=== PATIENT | male | born 1965 | race Caucasian/White ===

== ENCOUNTER → 2025-03-01 | Outpatient (CLI) | payer OTHER, SELFPAY ==
[2025-03-01 16:10] LABS: AST(SGOT) 36 U/L (<=37); Alanine Aminotransfer ALT/SGPT 27 U/L (<=46); Albumin, Serum 4.4 g/dL (3.5-5.0); Alkaline Phosphatase 98 U/L (40-129); Anion Gap 12 (5-15); BUN 23 mg/dL (4-19); BUN/Creat Ratio 14.2 RATIO (10-20); Calcium,Total 9.0 mg/dL (7.6-11.0); Carbon Dioxide 19.0 mmol/L (21.0-32.0); Chloride 111 mmol/L (98-108); Cholesterol 133 mg/dL (<=200); Globulin 2.7 g/dL (2.2-4.2); Glucose 121 mg/dL (70-99); Low Density Lipoprotein Calc. 66 mg/dL; PSA,Total - Annual Screen 7.79 ng/mL (0.02-4.00); Potassium 3.9 mmol/L (3.3-5.1); Triglycerides 125 mg/dL; Very Low Density Lipoprotein 25 mg/dL (5-40); Vitamin B12 266 pg/mL (180-914); cholesterol:hdl ratio screen 3.15
== END | disposition home or self-care (01) ==
PROVIDERS: PCP Family Medicine; Referring Provider Family Medicine; Visit Provider Family Medicine
DX: E11.9 Type 2 diabetes mellitus without complications (principal); Z12.5 Encounter for screening for malignant neoplasm of prostate; N40.0 Benign prostatic hyperplasia without lower urinary tract symptoms
CPT/HCPCS: 36415; 80053; 80061; 82607; 84153; 84403; 84443; G0103

== ENCOUNTER → 2025-05-31 | Outpatient (CLI) | payer OTHER, SELFPAY ==
--- OUTSIDE RECORDS SUMMARY | 2025-05-31 07:27 | XMS RPT_ITS | CCD ---
Author Organization [facility] CliniSysc Care Team Providers Care Publishing Specialist Name Role Phone PARTH SOOD Unavailable UnavailPARTH To Unavailable UnavailPARTH To Unavailable Unavailable PARTH SOOD Unavailable Unavailable Furnguerrero Ian Unavailable Unavailable Rajiv Ayers Unavailable Unavailable Armen HUTTON, Rajiv Unavailable Unavailable Rajiv Ayers Unavailable Unavailable Reji Thomas Unavailable Unavailable Dexter Rios Unavailable Unavailable Unavailable Dexter Rios Unavailable Moomaw, Shaun I Unavailable Unavailable Jay II, Dr. Misael Feliz Attending Unavai lable [place], Mr. Dexter Escamilla Primary Care Unavail able Jay II, Dr. Misael Feliz Attending Unavai lable Jay II, Dr. Misael Feliz Referring Unavai [facility]able [facility], Mr. Dexter Escamilla Primary Care Unavail able Jay II, Dr. Misael Feliz Attending Unavai lable Jay II, Dr. Misael Feliz Referring Unavacedric lable [facility], Mr. Dexter Escamilla Primary Care Unavail able [place], Mr. Dexter Escamilla Primary Care Unavail able [place], Mr. Dexter Escamilla Attending Unavail able [place], Mr. Dexter Escamilla Referring Unavail able DEXTER RIOS M Primary Care Unavailable Dr. Alice Valentino Attending Unavailable [place], Mr. Dexter Escamilla Primary Care Unavail able Dexter Rios PA-C Primary Care Provider Dexter Rios PA-C Unavailable NADINE MARTINEZ Attending Unavailable DEXTER RIOS Primary Care Unavailable NADINE MARTINEZ Referring Unavailable DEXTRE RIOS Primary Care Unavailable KODY MARI Attending Unavailable No Family, Physician Primary Care Unavailable Andreina HUTTON, Dr. Vance Primary Care Physicia n Andreina HUTTON, Dr. Vance Attending Physician Dr. Rajiv Hdz MD Referring Provider Rajiv Hdz Referring Unavailable Rajiv Hdz Attending Unavailable Rajiv Hdz Primary Care Unavailable Allergies Allergy Classification Reported Allergen(s) Allergy Type Date of Onset Reaction(s) Facility NSAIDs (1 source) NSAIDs Drug Allergy [facility] [address] Work Phone: (2 sources) NSAIDs; Translations: [NSAIDS (NON-STEROIDAL ANTI-INFLAMMATOR Y DRUG)] Propensity to adverse reactions to drug (disorder) 5 [facility] Repository (9 sources) NSAIDs; Translations: [NSAIDs] Allergy to drug (finding) [facility] Work Phone: (1 source) Bee/Wasp/Ant venom Anaphylaxis [facility] (4 sources) apis mellifera venom Allergy to substance (finding) [facility] Work Phone: (1 source) ALLERGIES NOT ON FILE; Translations: [ALLERGIES NOT ON FILE] Propensity to adverse reactions (disorder) [facility] Medications Current Medications Medication Drug Class(es) Dates Sig (Normalized) Sig (Original) diclofenac potassium 50 mg oral tablet (1 source) Nonsteroidal Anti-inflammatory Drug Start: 06-26-2023 End: 06-25-2024 take 1 tablet by mouth three times daily diclofenac (Cataflam) 50 mg tablet Indications: Osteoarthritis of carpometacarpal (CMC) joint of both thumbs , Primary osteoarthritis of right knee Take 1 tablet (50 mg) by mouth 3 times a day. 270 tablet 3 06/26/2023 06/25/2024 Active empagliflozin 10 mg oral tablet (5 sources) Sodium-Glucose Cotransporter 2 Inhibitor Start: 02-11-2023 End: 02-11-2024 take 1 tablet by mouth once daily Jardiance 10 mg Indications: Type 2 diabetes mellitus without complication, without long-term current use of insulin ([facility]) TAKE 1 TABLET BY MOUTH EVERY DAY 90 tablet 3 02/11/2023 02/11/2024 Active Start: 08-06-2022 take 1 tablet by benoit once daily Jardiance 10 MG Oral Tablet TAKE 1 TABLET BY MOUTH ONCE DAILY Quantity: 30 Refills: 5 Ordered: 06-Aug-2022 Dexter Rios PA-C Start : 06-Aug-2022 Active [id number] 0.3 ml EPINEPHrine 1 mg/ml auto-injector (1 source) alpha-Adrenergic Agonist, beta-Adrenergic Agonist, Catecholamine Start: 01-08-2022 EPINEPHrine 0.3 mg injectable kit ; 0.3 milligram(s) intramuscularly as needed for severe allergic reaction Quantity: 1 Refills: 0 Ordered: 08-Jan-2022 Shaun Cerna I Start: 08-Jan-2022 Generic Substitution Allowed Comments: Obtain medical advice before taking any non-prescription drugs as some may affect the action of this medication. Comment on above: Obtain medical advic e before taking any non-prescription drugs as some may affect the action of this medication. FLUoxetine 10 mg oral capsule (11 sources) Serotonin Reuptake Inhibitor Start: 02-11-2023 End: 02-11-2024 take 1 capsule by mouth once daily FLUoxetine (PROzac) 10 mg capsule Indications: Anxiety and depression TAKE 1 CAPSULE BY MOUTH EVERY DAY 90 capsule 3 02/11/2023 02/11/2024 Active Start: 09-21-2019 take 1 capsule by mo [facility] once daily FLUoxetine HCl - 10 MG Oral Capsule TAKE 1 CAPSULE Daily Quantity: 30 Refills: 6 Ordered: 25-Apr-2022 Dexter Rios PA-C Start : 21-Sep-2019 Active FLUoxetine ; ora lly once a day Quantity: 0 Refills: 0 Ordered: 02-Nov-2019 Shima Khalil Generic Substitution Allowed 24 hr metFORMIN hydrochloride 1000 mg / SITagliptin 50 mg extended release oral tablet (11 sources) Biguanide, Dipeptidyl Peptidase 4 Inhibitor Start: 02-11-2023 End: 02-11-2024 take 1 tablet by mouth once daily sitaGLIPtin phos-metformin 50-1,000 mg tablet, ER multiphase 24 hr Indications: Type 2 diabetes mellitus without complication, without long-term current use of insulin ([facility]) TAKE 1 TABLET BY MOUTH EVERY DAY 90 tablet 3 02/11/2023 02/11/2024 Active Start: 07-18-2020 take 1 tablet by benoit th twice daily at mealtime Janumet XR 50-1000 MG Oral Tablet Extended Release 24 Hour Take one tablet twice daily with meals Quantity: 60 Refills: 6 Ordered: 08-Aug-2021 Dexter Rios PA-C Start : 18-Jul-2020 Active Start: 07-18-2020 take 2 tablets by mo uth once daily Janumet XR 50-1000 MG Oral Tablet Extended Release 24 Hour TAKE 2 TABLET Daily Quantity: 180 Refills: 3 Rajiv Ayers MD Start : 18-Jul-2020 Active Start: 09-21-2019 take 1 tablet by benoit th twice daily at mealtime Janumet 50-500 MG Oral Tablet TAKE 1 TABLET TWICE DAILY WITH MEALS. Quantity: 180 Refills: 3 Ian Noble MD Start : 21-Sep-2019 Active Janumet 50 mg-50 0 mg oral tablet ; orally once a day Quantity: 0 Refills: 0 Ordered: 02-Nov-2019 Shima Khalil Generic Substitution Allowed pantoprazole 20 mg delayed release oral tablet (1 source) Proton Pump Inhibitor Start: 06-26-2023 End: 06-25-2024 take 1 tablet by mouth once daily before mealtime pantoprazole (Protonix) 20 mg EC tablet Indications: Osteoarthritis of carpometacarpal (CMC) joint of both thumbs , Primary osteoarthritis of right knee Take 1 tablet (20 mg) by mouth once daily in the morning. Take before meals. Do not crush, chew, or split. 90 tablet 3 06/26/2023 06/25/2024 Active predniSONE 50 mg oral tablet (1 source) Start: 01-08-2022 End: 01-12-2022 take 1 tablet by mouth once daily at mealtime predniSONE 50 mg oral tablet ; 1 tab(s) orally once a day x 5 days Quantity: 5 Refills: 0 Ordered: 08-Jan-2022 Shaun Cerna I Start: 08-Jan-2022 End: 12-Jan-2022 Generic Substitution Allowed Comments: It is very important that you take or use this exactly as directed. Do not skip doses or discontinue unless directed by your doctor.Obtain medical advice before taking any non-prescription drugs as some may affect the action of this medication.Take with food or milk. Comment on above: It is very important that you take or use this exactly as directed. Do not skip doses or discontinue unless directed by your doctor.Obtain medical advice before taking any non-prescription drugs as some may affect the action of this medication.Take with food or milk. tadalafil 5 mg oral tablet (4 sources) Phosphodiesterase 5 Inhibitor Start: 08-21-2022 End: 08-21-2023 take 1 tablet by mouth once daily tadalafil (Cialis) 5 mg tablet TAKE 1 TABLET BY MOUTH DAILY. 90 tablet 3 08/21/2022 08/21/2023 Active Completed/Discontinued Medications Medication Drug Class(es) Dates Sig (Normalized) Sig (Original) azithromycin 250 mg oral tablet (4 sources) Macrolide Antimicrobial Start: 3 Azithromycin 250 MG Oral Tablet TAKE DIRECTED PER PACKAGE INSTRUCTIONS. Quantity: 6 Refills: 0 Ordered: 06-Aug-2022 Dexter Rios PA-C Start : 06-Aug-2022 Active brompheniramine maleate 0.4 mg/ml / dextromethorphan hydrobromide 2 mg/ml / pseudoephedrine hydrochloride 6 mg/ml oral solution (4 sources) alpha-Adrenergic Agonist, Uncompetitive M-bljnsa-K-[place]part[place] te Receptor Antagonist, Sigma-1 Agonist Start: 3 take 5-10 mL by mouth every four to six hours as needed for cough Eiptatbzm-Tkcqrcne-BZ 30-2-10 MG/5ML Oral Syrup take 5-10 mL po q4-6 hrs prn cough, cold, or allergy symptoms Quantity: 120 Refills: 1 Ordered: 06-Aug-2022 Dexter Rios PA-C Start : 06-Aug-2022 Active cephalexin 250 mg oral tablet (2 sources) Cephalosporin Antibacterial Start: 3 take 1 tablet by mouth twice daily Cephalexin 250 MG Oral Tablet Take 1 tablet twice daily Quantity: 6 Refills: 0 Ordered: 09-Sep-2022 Misael Jay II, MD Start : 09-Sep-2022 Active 1 ml dexamethasone phosphate 4 mg/ml injection (4 sources) Corticosteroid Start: 4 End: 4 dexAMETHasone (Decadron) injection 4 mg methylPREDNISolone 4 MG Oral Tablet Therapy Pack (4 sources) Start: 3 methylPREDNISolone 4 MG Oral Tablet Therapy Pack as directed on package Quantity: 1 Refills: 0 Ordered: 06-Aug-2022 Dexter Rios PA-C Start : 06-Aug-2022 Active rosuvastatin calcium 5 mg oral tablet (4 sources) HMG-CoA Reductase Inhibitor Start: 3 take 1 tablet by mouth once daily Rosuvastatin Calcium 5 MG Oral Tablet take 1 tablet by mouth once daily Quantity: 30 Refills: 3 Ordered: 06-Aug-2022 Dexter Rios PA-C Start : 06-Aug-2022 Active tamsulosin hydrochloride 0.4 mg oral capsule (8 sources) alpha-Adrenergic Sammi Start: 3 take 2 capsules by mouth at bedtime Tamsulosin HCl - 0.4 MG Oral Capsule TAKE 2 CAPSULE Bedtime Quantity: 30 Refills: 3 Ordered: 06-Aug-2022 Dexter Rios PA-C Start : 06-Aug-2022 Active Start: 08-08-2021 End: 08-06-2022 take 1 capsule by mouth once daily Tamsulosin HCl - 0.4 MG Oral Capsule TAKE 1 CAPSULE Daily Quantity: 90 Refills: 3 Ordered: 31-Jul-2022 Dexter Rios PA-C Start : 08-Aug-2021 End : 06-Aug-2022 Complete Problems Active Problems Problem Classification Problem Date Documented Da te Episodic/Chronic Acquired foot deformities (5 sources) Other hammer toe(s) (acquired), right foot; Translations: [Other hammer toe(s) (acquired), right foot] Onset: 03-20-2017 Chronic Allergic reactions (3 sources) Allergic reaction; Translations: [Allergy, unspecified, not elsewhere classified] 01-08-2022 Episodic Comment on above: ALLERGIC REACTION Blindness and vision defects (20 sources) Myopia; Translations: [Unspecified astigmatism, bilateral] Episodic Calculus of urinary tract (3 sources) History of calculus of kidney; Translations: [Personal history of urinary calculi] Episodic Cataract (9 sources) Pseudophakia of right eye; Translations: [Lens replaced by other means] 03-29-2020 Chronic Diabetes mellitus with complications (4 sources) 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; Translations: [Diabetes with renal manifestations, type II or unspecified type, not stated as uncontrolled] Chronic Diabetes mellitus without complication (11 sources) Type 2 diabetes mellitus without complication; Translations: [Diabetes mellitus without mention of complication, type II or unspecified type, not stated as uncontrolled] Onset: 03-12-2025 Chronic Genitourinary symptoms and ill-defined conditions (7 sources) Nocturia; Translations: [Nocturia] Episodic Hyperplasia of prostate (3 sources) Benign prostatic hypertrophy with outflow obstruction; Translations: [Benign localized hyperplasia of prostate with urinary obstruction and other lower urinary tract symptoms (LUTS)] Chronic Immunizations and screening for infectious disease (20 sources) Patient encounter status; Translations: [Other specified vaccination] Resolved: 08-08-2021 Episodic Comment on above: 02/22/2019; Mood disorders (14 sources) Depressive disorder; Translations: [Depressive disorder, not elsewhere classified] Chronic Osteoarthritis (16 sources) Osteoarthrosis of the carpometacarpal joint of the thumb; Translations: [Osteoarthrosis, unspecified whether generalized or localized, hand] Onset: 06-26-2023 06-23-2023 Chronic Other connective tissue disease (8 sources) Pain in thumb ; Translations: [Pain in limb] Episodic Other eye disorders (10 sources) Intermittent exotropia; Translations: [Intermittent heterotropia, unspecified] Episodic Other gastrointestinal disorders (9 sources) Blind loop syndrome; 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] Chronic Other non-traumatic joint disorders (1 source) Knee pain; Translations: [Knee pain] Episodic Other non-traumatic joint disorders (9 sources) Pain in unspecified knee; Translations: [Knee pain] Resolved: 08-08-2021 06-25-2023 Episodic Other non-traumatic joint disorders (2 sources) Effusion of right knee joint; Translations: [Effusion, right knee] Onset: 06-26-2023 06-26-2023 Episodic Other non-traumatic joint disorders (4 sources) Pain in right knee; Translations: [Pain in right knee] Onset: 06-26-2023 Episodic Other upper respiratory infections (4 sources) Upper respiratory infection; Translations: [Acute upper respiratory infections of unspecified site] Episodic Poisoning by nonmedicinal substances (2 sources) Allergic reaction to bee sting; Translations: [Toxic effect of venom] 01-08-2022 Episodic Screening and history of mental health and substance abuse codes (9 sources) H/O: psychiatric disorder; Translations: [Personal history of neurosis] Episodic Unclassified (1 source) Other specified postprocedural states; Translations: [Other specified postprocedural states] Onset: 03-20-2017 Unclassified (1 source) Unknown / UNK(Unknown) Onset: 03-20-2017 Unclassified (1 source) 6 MONTH FUV 08-08-2021 Comment on above: 6 MONTH FUV Past or Other Problems Problem Classification Problem Date Documented Date Episodic/Chronic Acquired foot deformities (1 source) Other deformities of toe(s) (acquired), right foot; Translations: [Other deformities of toe(s) (acquired), right foot] Onset: 03-20-2017 Episodic Other circulatory disease (7 sources) H/O: hypertension; Translations: [Personal history of other diseases of circulatory system] Resolved: 08-08-2021 Episodic Residual codes; unclassified (1 source) Other specified postprocedural states; Translations: [Other specified postprocedural states] Onset: 07-03-2022 Episodic Unclassified (1 source) Other deformities of toe(s) (acquired), right foot Onset: 03-20-2017 Unclassified (2 sources) Patient encounter status; Translations: [Encounter for immunization] NEGATED: Highlighted row has not occurred!Residual codes; unclassified (15 sources) Disease Episodic Results Test Name Value Interpretation Reference Range Facility Anion gap in Serum or Plasma Ordered By: Rajiv Hdz on 03-01-2025 Anion gap [Moles/Vol] 12 mmol/L - [facility] BUN/creatinine ratioOrdered By: Rajiv Hdz on 03-01-2025 Urea nitrogen/Creatinine [Mass ratio] 14.2 mg/mg - [facility] Bilirubin, totalOrdered By: Rajiv Hdz on 03-01-2025 Bilirubin [Mass/Vol] 0.37 mg/dL 0.00-1.30 [facility] Calculated very low density lipoprotein (VLDL) cholesterol measurementOrdered By: Rajiv Hdz on 03-01-2025 Calculated very low density lipoprotein (VLDL) cholesterol measurement 25 mg/dL 5-40 [facility] Carbon dioxide, total [Moles /volume] in Central venous bloodOrdered By: Rajiv Hdz on 03-01-2025 CO2 [Moles/Vol] 19.0 mmol/L Low 21.0-32.0 [facility] Chloride assayOrdered By: Kamryn Hdz on 03-01-2025 Chloride [Moles/Vol] 111 mmol/L High 98-108 [facility] Comprehensive Metabolic Prof ilon 03-01-2025 Albumin [Mass/Vol] 4.4 g/dL Normal 3.5-5.0 [facility] Comment on above: Order Comment: Order Date: 10/21/24 Order Info: [id number] - CMP Order Info: - LIPID Order Info: [id number] - TSH Order Info: [id number] - PSA Performed By: #### L [id number], L501.9910, L501.9520, L500.4100 #### [facility] [address] [place], [address] Albumin/Globulin [Mass ratio] 1.6 {ratio} Normal 0.9-2.4 [facility] Comment on above: Order Comment: Order Date: 10/21/24 Order Info: [id number] - CMP Order Info: - LIPID Order Info: [id number] - TSH Order Info: [id number] - PSA Performed By: #### L 500.4050, L501.9910, L501.9520, L500.4100 #### [facility] [address] [place], [address] ALK PHOS 98 U/L Normal 40-129 [facility] Comment on above: Order Comment: Order Date: 10/21/24 Order Info: [id number] - CMP Order Info: - LIPID Order Info: [id number] - TSH Order Info: [id number] - PSA Performed By: #### L 500.4050, L501.9910, L501.9520, L500.4100 #### [facility] [address] [place], [address] ALT [Catalytic activity/Vol] 27 U/L Normal <=46 [facility] Comment on above: Order Comment: Order Date: 10/21/24 Order Info: 785- - CMP Order Info: - LIPID Order Info: [id number] - TSH Order Info: [id number] - PSA Performed By: #### L 500.4050, L501.9910, L501.9520, L500.4100 #### [facility] [address] [place], [address] AST [Catalytic activity/Vol] 36 U/L Normal <=37 [facility] Comment on above: Order Comment: Order Date: 10/21/24 Order Info: [id number] - CMP Order Info: - LIPID Order Info: [id number] - TSH Order Info: [id number] - PSA Performed By: #### L 500.4050, L501.9910, L501.9520, L500.4100 #### [facility] [address] [place], [address] Bilirubin [Mass/Vol] 0.37 mg/dL Normal 0.00-1.30 [facility] Comment on above: Order Comment: Order Date: 10/21/24 Order Info: [id number] - CMP Order Info: - LIPID Order Info: [id number] - TSH Order Info: [id number] - PSA Performed By: #### L 500.4050, [id number], L501.9520, L500.4100 #### [facility] [address] [place], [address] BUN/CRE 14.2 RATIO Normal 10-20 [facility] Comment on above: Order Comment: Order Date: 10/21/24 Order Info: [id number] - CMP Order Info: - LIPID Order Info: [id number] - TSH Order Info: [id number] - PSA Performed By: #### L 500.4050, L501.9910, L501.9520, L500.4100 #### [facility] [address] [place], [address] Calcium [Mass/Vol] 9.0 mg/dL Normal 7.6-11.0 [facility] Comment on above: Order Comment: Order Date: 10/21/24 Order Info: 86-1 - CMP Order Info: [id number] - LIPID Order Info: [id number] - TSH Order Info: [id number] - PSA Performed By: #### L 500.4050, L501.9910, L501.9520, L500.4100 #### [facility] [address] [place], [address] Chloride [Moles/Vol] 111 mmol/L High 98-108 [facility] Comment on above: Order Comment: Order Date: 10/21/24 Order Info: [id number]- - CMP Order Info: - LIPID Order Info: [id number] - TSH Order Info: 1 - PSA Performed By: #### L 500.4050, L501.9910, L501.9520, L500.4100 #### [facility] [address] [place], [address] CO2 [Moles/Vol] 19.0 mmol/L Low 21.0-32.0 [facility] Comment on above: Order Comment: Order Date: 10/21/24 Order Info: [id number] - CMP Order Info: - LIPID Order Info: [id number] - TSH Order Info: [id number] - PSA Performed By: #### L 500.4050, L501.9910, L501.9520, L500.4100 #### [facility] [address] [place], [address] Creatinine [Mass/Vol] 1.64 mg/dL High 0.70-1.20 [facility] Comment on above: Order Comment: Order Date: 10/21/24 Order Info: [id number] - CMP Order Info: [id number] - LIPID Order Info: [id number] - TSH Order Info: [id number] - PSA Performed By: #### L 500.4050, L501.9910, L501.9520, L500.4100 #### [facility] [address] [place], [address] GAP 12 Normal 5-15 [facility] Comment on above: Order Comment: Order Date: 10/21/24 Order Info: 785- - CMP Order Info: - LIPID Order Info: [id number] - TSH Order Info: [id number] - PSA Performed By: #### L 500.4050, L501.9910, L501.9520, L500.4100 #### [facility] [address] [place], [place], [id number] GFR/1.73 sq M.predicted among non-blacks MDRD (S/P/Bld) [Vol rate/Area] 48 mL/min/{1.73_m2} Low >60 [facility] Comment on above: Order Comment: Order Date: 10/21/24 Order Info: [id number] - CMP Order Info: - LIPID Order Info: [id number] - TSH Order Info: [id number] - PSA Result Comment: mL/m in/1.73m2 CKD-EPI Creatinine Equation (2020) Performed By: #### L 500.4050, L501.9910, L501.9520, L500.4100 #### [facility] [address] [place], [address] Globulin (S) [Mass/Vol] 2.7 g/dL Normal 2.2-4.2 [facility] Comment on above: Order Comment: Order Date: 10/21/24 Order Info: [id number] - CMP Order Info: - LIPID Order Info: [id number] - TSH Order Info: [id number] - PSA Performed By: #### L 500.4050, L501.9910, L501.9520, L500.4100 #### [facility] [address] [place], [address] Glucose [Mass/Vol] 121 mg/dL High 70-99 [facility] Comment on above: Order Comment: Order Date: 10/21/24 Order Info: 785- - CMP Order Info: [id number] - LIPID Order Info: [id number] - TSH Order Info: [id number] - PSA Performed By: #### L 500.4050, L501.9910, L501.9520, L500.4100 #### [facility] [address] [place], [address] Potassium [Moles/Vol] 3.9 mmol/L Normal 3.3-5.1 [facility] Comment on above: Order Comment: Order Date: 10/21/24 Order Info: [id number] - CMP Order Info: - LIPID Order Info: [id number] - TSH Order Info: [id number] - PSA Performed By: #### L 500.4050, L501.9910, L501.9520, L500.4100 #### [facility] [address] [place], [address] Sodium [Moles/Vol] 142 mmol/L Normal 133-145 [facility] Comment on above: Order Comment: Order Date: 10/21/24 Order Info: 07 - CMP Order Info: - LIPID Order Info: [id number] - TSH Order Info: [id number] - PSA Performed By: #### L 500.4050, L501.9910, L501.9520, L500.4100 #### [facility] [address] [place], [address] T PROT 7.1 g/dL Normal 5.9-8.4 [facility] Comment on above: Order Comment: Order Date: 10/21/24 Order Info: [id number] - CMP Order Info: [id number] - LIPID Order Info: [id number] - TSH Order Info: [id number] - PSA Performed By: #### L 500.4050, L501.9910, L501.9520, L500.4100 #### [facility] [address] [place], [address] Urea nitrogen [Mass/Vol] 23 mg/dL High 4-19 [facility] Comment on above: Order Comment: Order Date: 10/21/24 Order Info: [id number] - CMP Order Info: [id number] - LIPID Order Info: [id number] - TSH Order Info: 1 - PSA Performed By: #### L 500.4050, L501.9910, L501.9520, L500.4100 #### [facility] [address] [place], [address] Glomerular filtration rate ( GFR) estimation/1.73 sq m using serum, plasma, or whole bOrdered By: Rajiv Hdz on 03-01-2025 GFR/1.73 sq M.predicted among non-blacks MDRD (S/P/Bld) [Vol rate/Area] 48 mL/min/{1.73_m2} Low >60 [facility] Comment on above: mL/min/1.73m2 CKD-EP I Creatinine Equation (2020) L509.3001on 03-01-2025 Testosterone [Mass/Vol] 239.00 ng/dL Low 300-890 [facility] Comment on above: Order Comment: Order Date: 10/21/24 Order Info: [id number] - CMP Order Info: 21557-1 - LIPID Order Info: 3015-08 - TSH Order Info: 1 - PSA Performed By: #### L 503.0106, L509.3001 #### [facility] [address] [place], [address] LDL calc ser/plasOrdered By: Rajiv Hdz on 03-01-2025 Cholesterol in LDL [Mass/Vol] 66 mg/dL [facility] Comment on above: Fmtejggrdh=567-081 m g/dL & Higher Mtbk=374 mg/dL or greaterFriedwald Equation for LDL-C Laboratory - Chemistry and C hemistry - challengeOrdered By: Rajiv Hdz on 03-01-2025 AST [Catalytic activity/Vol] 36 U/L <38 [facility] Testosterone [Mass/Vol] 239.00 ng/dL Low 300-890 [facility] Lipid Profileon 03-01-2025 CHOL:HDL 3.15 Normal [facility] Comment on above: Order Comment: Order Date: 10/21/24 Order Info: 0786-1 - CMP Order Info: [id number] - LIPID Order Info: [id number] - TSH Order Info: 2856-06 - PSA Performed By: #### L 500.4050, L501.9910, L501.9520, L500.4100 #### [facility] [address] [place], [place], [id number] Cholesterol [Mass/Vol] 133 mg/dL Normal <=200 [facility] Comment on above: Order Comment: Order Date: 10/21/24 Order Info: [id number] - CMP Order Info: - LIPID Order Info: [id number] - TSH Order Info: [id number] - PSA Result Comment: Chol esterol level, Desirable <200 mg/dL Borderline high cholesterol 200-239 mg/dL High cholesterol >=240 mg/dL Recommendations of the NCEP Adult Treatment Panel for the following risk-cutoff thresholds for the [place] population. Performed By: #### L 500.4050, L501.9910, L501.9520, L500.4100 #### [facility] [address] [place], [place], [address] Cholesterol in HDL [Mass/Vol] 42 mg/dL Normal [facility] Comment on above: Order Comment: Order Date: 10/21/24 Order Info: 0786- - CMP Order Info: [id number] - LIPID Order Info: 3015-08 - TSH Order Info: 2856-06 - PSA Result Comment: Amna onal Cholesterol Education Program (NCEP) guidelines: <40 mg/dL: Low HDL-cholesterol (major risk factor for CHD) >= 60 mg/dL: High HDL-cholesterol (negative risk factor for CHD) HDL-cholesterol is affected by a number of factors, e.g. smoking, exercise, hormones, sex and age. Performed By: #### L 500.4050, L501.9910, L501.9520, L500.4100 #### [facility] [address] [place], [address] Cholesterol in LDL [Mass/Vol] 66 mg/dL Normal [facility] Comment on above: Order Comment: Order Date: 10/21/24 Order Info: [id number] - CMP Order Info: [id number] - LIPID Order Info: 3 - TSH Order Info: [id number] - PSA Result Comment: Bord fjnahn=349-992 mg/dL Higher Cesg=927 mg/dL or greater Friedwald Equation for LDL-C Performed By: #### L 500.4050, L501.9910, L501.9520, L500.4100 #### [facility] [address] [place], [address] Cholesterol in VLDL [Mass/Vol] 25 mg/dL Normal 5-40 [facility] Comment on above: Order Comment: Order Date: 10/21/24 Order Info: 785- - CMP Order Info: [id number] - LIPID Order Info: 3 - TSH Order Info: 2856-06 - PSA Performed By: #### L 500.4050, L501.9910, L501.9520, L500.4100 #### [facility] [address] [place], [address] Triglyceride [Mass/Vol] 125 mg/dL Normal [facility] Comment on above: Order Comment: Order Date: 10/21/24 Order Info: 0786-1 - CMP Order Info: [id number] - LIPID Order Info: 3 - TSH Order Info: [id number] - PSA Result Comment: The drugs N-Acetylcysteine and Metamizole may falsely depress this assay. Normal range: <150 mg/dL Borderline High: 150-199 mg/dL High: 200-499 mg/dL Very High: >500 mg/dL Performed By: #### L 500.4050, L501.9910, L501.9520, L500.4100 #### [facility] [address] [place], [address] PSA,Total - Annual Screenon 03-01-2025 PSA,TOT SCREEN 7.79 ng/mL High 0.02-4.00 [facility] Comment on above: Order Comment: Order Date: 10/21/24 Order Info: [id number] - CMP Order Info: [id number] - LIPID Order Info: [id number] - TSH Order Info: 2857-1 - PSA Result Comment: This test was performed using the [employer] tPSA method. Measured values of a patient??sample can vary depending on the testing procedure used. PSA values determined on patient samples by different testing procedures cannot be used interchangeably. If there is a change in PSA assays while monitoring therapy, sequential testing should be performed to confirm baseline values. Performed By: #### L 500.4050, L501.9910, L501.9520, L500.4100 #### [facility] [address] [place], [address] Potassium measurement (mass/ volume)Ordered By: Rajiv Hdz on 03-01-2025 Potassium (Unsp spec) [Mass/Vol] 3.9 mmol/L 3.3-5.1 [facility] Screening total cholesterol/ high density lipoprotein (HDL) cholesterol ratioOrdered By: Rajiv Hdz on 03-01-2025 Cholesterol.total/Cho lesterol in HDL [Mass ratio] 3.15 {ratio} [facility] Serum creatinine measurement (mass/volume)Ordered By: Rajiv Hdz on 03-01-2025 Creatinine [Mass/Vol] 1.64 mg/dL High 0.70-1.20 [facility] Serum globulin measurementOr dered By: Rajiv Hdz on 03-01-2025 Globulin (S) [Mass/Vol] 2.7 g/dL 2.2-4.2 [facility] Serum glucose measurement (m ass/volume)Ordered By: Rajiv Hdz on 03-01-2025 Glucose [Mass/Vol] 121 mg/dL High 70-99 [facility] Serum or plasma alanine sosa otransferase (ALT) measurementOrdered By: Rajiv Hdz on 03-01-2025 ALT [Catalytic activity/Vol] 27 U/L <47 [facility] Serum or plasma albumin javi urement (mass/volume)Ordered By: Rajiv Hdz on 03-01-2025 Albumin [Mass/Vol] 4.4 g/dL 3.5-5.0 [facility] Serum or plasma albumin/glob ulin mass ratioOrdered By: Rajiv Hdz on 03-01-2025 Albumin/Globulin [Mass ratio] 1.6 {ratio} 0.9-2.4 [facility] Serum or plasma alkaline cam sphatase measurementOrdered By: Rajiv Hdz on 03-01-2025 ALP [Catalytic activity/Vol] 98 U/L 40-129 [facility] Serum or plasma calcium javi urement (mass/volume)Ordered By: Rajiv Hdz on 03-01-2025 Calcium [Mass/Vol] 9.0 mg/dL 7.6-11.0 [facility] Serum or plasma cholesterol in HDL measurement (mass/volume)Ordered By: Rajiv Hdz on 03-01-2025 Cholesterol in HDL [Mass/Vol] 42 mg/dL >40 [facility] Comment on above: National Cholesterol Education Program (NCEP) guidelines:<40 mg/dL: Low HDL-cholesterol (major risk factor for CHD)>= 60 mg/dL: High HDL-cholesterol (negative risk factor for CHD)HDL-cholesterol is affected by a number of factors, e.g. smoking, exercise, hormones, sex and age. Serum or plasma cholesterol measurement (mass/volume)Ordered By: Rajiv Hdz on 03-01-2025 Cholesterol [Mass/Vol] 133 mg/dL <201 [facility] Comment on above: Cholesterol level, D esirable <200 mg/dLBorderline high cholesterol 200-239 mg/dLHigh cholesterol >=240 mg/dLRecommendations of the NCEP Adult Treatment Panel for the following risk-cutoff thresholds for the [place] population. Serum or plasma urea nitroge n measurement (mass/volume)Ordered By: Rajiv Hdz on 03-01-2025 Urea nitrogen [Mass/Vol] 23 mg/dL High 4-19 [facility] Sodium levelOrdered By: Elliot Hdz on 03-01-2025 Sodium [Moles/Vol] 142 mmol/L 133-145 [facility] TSH DL <= 0.005 mIU/L QnOrde red By: Rajiv Hdz on 03-01-2025 TSH Qn 5.690 uIU/mL High 0.300-4.200 [facility] Thyroid Stim Hormone (TSH)on 03-01-2025 TSH 5.690 uIU/mL High 0.300-4.200 [facility] Comment on above: Order Comment: Order Date: 10/21/24 Order Info: 0786 - CMP Order Info: [id number] - LIPID Order Info: [id number] - TSH Order Info: 2856-06 - PSA Performed By: #### L 500.4050, L501.9910, L501.9520, L500.4100 #### [facility] [address] [place], [place], [id number] Total proteinOrdered By: Ruben Hdz on 03-01-2025 Protein [Mass/Vol] 7.1 g/dL 5.9-8.4 [facility] Triglycerides measurementOrd ered By: Rajiv Hdz on 03-01-2025 Triglyceride [Mass/Vol] 125 mg/dL <199 [facility] Comment on above: The drugs N-Acetylcy steine and Metamizole may falsely depress this assay. Normal range: <150 mg/dLBorderline High: 150-199 mg/dLHigh: 200-499 mg/dLVery High: >500 mg/dL Vitamin B12on 03-01-2025 Cobalamin (Vitamin B12) [Mass/Vol] 266 pg/mL Normal 180-914 [facility] Comment on above: Order Comment: Order Date: 10/21/24 Order Info: 0786 - CMP Order Info: [id number] - LIPID Order Info: [id number] - TSH Order Info: [id number] - PSA Performed By: #### L 503.0106, L509.3001 #### [facility] [address] [place], [place], [id number] Vitamin B12 ser/plasOrdered By: Rajiv Hdz on 03-01-2025 Cobalamin (Vitamin B12) [Mass/Vol] 266 pg/mL 180-914 [facility] Hand / UE Inj/Asp: bilateral thumb CMCon 06-26-2023 Nadine Martinez, [employer] 06/26/2023 1:13 PM Hand / UE Inj/Asp: bilateral thumb CMC for osteoarthritis on 06/26/2023 1:09 PM Indications: diagnostic, pain, joint swelling and therapeutic Details: 25 G needle, dorsal approach Medications (Right): 4 mg dexAMETHasone 4 mg/mL Medications (Left): 4 mg dexAMETHasone 4 mg/mL Outcome: tolerated well, no immediate complications We discussed risk and benefits of cortisone injection, patient wishes to proceed via verbal consent. Skin was prepped with Betadine, Vapocoolant spray and alcohol. Direct visualization using high-frequency linear probe of ultrasound was utilized to administer the injection of 4 mg Dexamethasone and 0.5 cc 1% lidocaine. Patient tolerated injection well lidocaine suppression. Educated to monitor qd blood sugars x 2 weeks. Drink plenty of water and unsweetened fluids, avoid added sugars and refined carbohydrates. Call your PCP for any concerning symptoms or elevated readings. Immediately prior to procedure a time out was called to verify the correct patient, procedure, equipment, instructional support services director and site/side marked as required. Patient was prepped and draped in the usual sterile fashion. [facility] Work Phone: [facility] Work Phone: XR HAND 3+ VIEWS BILATERALon 06-26-2023 XR HAND 3+ VIEWS BILATERAL Interpreted By: Marianna Nixon, STUDY: XR HAND 3+ VIEWS BILATERAL; 06/26/2023 8:24 am INDICATION: Signs/Symptoms:pain, CMC OA, weakness. COMPARISON: 07/11/2020 ACCESSION NUMBER(S): [id number] ORDERING CLINICIAN: NADINE MARTINEZ TECHNIQUE: PA, lateral and oblique images of the hands were obtained bilaterally. FINDINGS: There is moderate degenerative change of the 1st metacarpal-carpal joint. The bones of the right hand are otherwise unremarkable. There are mild degenerative changes of the left 1st metacarpal-carpal joint. Bones and joints of the left hand are otherwise unremarkable COMPARISON OF FINDINGS: IMPRESSION: Moderate osteoarthritic changes of the 1st metacarpal-carpal joint of the right hand. Mild osteoarthritic changes of the 1st metacarpal-carpal joint of the left hand. MACRO: none Signed by: Marianna Nixon 06/27/2023 10:36 AM Dictation workstation: [id number] [facility] XR KNEE RIGHT 3 VIEWSon 06-16 XR KNEE RIGHT 3 VIEWS Interpreted By: Marianna Ferguson, STUDY: XR KNEE RIGHT 3 VIEWS; 06/26/2023 8:23 am INDICATION: Signs/Symptoms:pain, swelling, limited ROM. COMPARISON: 10/12/2018 ACCESSION NUMBER(S): [id number] ORDERING CLINICIAN: NADINE MARTINEZ TECHNIQUE: AP, lateral and tunnel images of right knee were obtained. FINDINGS: There is moderate spurring of patella. There is spurring of the femur and tibia. There appears to be narrowing of the patellofemoral joint compartment. There is no fracture, bony destruction or joint effusion. COMPARISON OF FINDINGS: There appears to have been mild progression of disease since prior exam. IMPRESSION: Mild osteoarthritis of the right knee. MACRO: none Signed by: Marianna iNxon 06/27/2023 8:52 AM Dictation workstation: [id number] [facility] Comment on above: Order Comment: XR kn ee right 3 views weightbearing TOBACCO SCREEN MEDICAL PL AN ONLYon 03-13-2023 TOBACCO SCREEN, URINE Negative Normal [facility] Comment on above: Result Comment: Coti nine, a metabolite of nicotine, is measured to screen for nicotine exposure. The cut-off is set at 300ng/mL to detect active exposure (smoking). This test was developed and its performance characteristics were determined by the [facility]. Performed By: #### T OBSC #### [facility] [address] [place] [address] Lab Specimen Source Urine Normal [facility] Comment on above: Performed By: #### T OBSC #### [facility] [address] [place] [address] Office Visit (Urology)on Follow-up visit Diagnoses/Problems Assessed Benign prostatic hyperplasia with urinary obstruction and other lower urinary tract symptoms (600.21) (N40.1,N13.8) Nocturia (788.43) (R35.1) Never chewed tobacco (V49.89) (Z78.9) Orders Benign prostatic hyperplasia with urinary obstruction and other lower urinary tract symptoms Start: Cephalexin 250 MG Oral Tablet (Cephalexin Monohydrate); Take 1 tablet twice daily Rx By: Misael Jay II; Dispense: 3 Days ; #:6 Tablet; Refill: 0;For: Benign prostatic hyperplasia with urinary obstruction and other lower urinary tract symptoms; CRISTELA = N; Verified Transmission to [facility] Follow-up visit in 5 Months Outpatient Follow-up psa Status: Hold For - Scheduling Requested for: 09Sep2022 Ordered Stat;For: Benign prostatic hyperplasia with urinary obstruction and other lower urinary tract symptoms; Ordered By: Misael Jay II Performed: Due: 08Dec2022 Nocturia Prostate Specific Antigen; Status:Active; Requested for:09Sep2022; Perform:Lab Services - Lab To Draw (Blood Test); Due:08Dec2022;Ordered; For:Nocturia; Ordered By:Misael Jay II; SocHx: Never chewed tobacco Tobacco Use Screening; Status:Complete; Done: 09Sep2022 Perform:Not Applicable;Ordered; For:SocHx: Never chewed tobacco; Ordered By:Jenise Putnam; Chief Complaint Cysto,Prostate US-BPH with Urinary Obstruction and LUTS Active Problems Problems Anisometropia (367.31) (H52.31) Astigmatism of both eyes (367.20) (H52.203) Astigmatism of left eye (367.20) (H52.202) Benign prostatic hyperplasia with urinary obstruction and other lower urinary tract symptoms (600.21) (N40.1,N13.8) Bilateral thumb pain (729.5) (M79.644,M79.645) Blind loop syndrome, not elsewhere classified (579.2) (K90.2) 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,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,N18.2) Depression (311) (F32.A) Exotropia, intermittent (378.20) (H50.30) History of kidney stones (V13.01) (Z87.442) 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) Mood disorder (296.90) (F39) Myopia (367.1) (H52.10) Myopia with presbyopia of both eyes (367.1,367.4) (H52.13,H52.4) Myopia, left eye (367.1) (H52.12) Nocturia (788.43) (R35.1) Osteoarthritis of carpometacarpal (CMC) joints of both thumbs, unspecified osteoarthritis type (715.94) (M18.0) Pseudophakia of right eye (V43.1) (Z96.1) Type 2 diabetes mellitus without complication, unspecified whether ic designer custom insulin use (250.00) (E11.9) URI (upper respiratory infection) (465.9) (J06.9) Past Medical History Problems Astigmatism of both eyes (367.20) (H52.203) History of Encounter for immunization (V03.89) (Z23) Resolved Date: 08 Aug 2021 Exotropia, intermittent (378.20) (H50.30) History of hypertension (V12.59) (Z86.79) Resolved Date: 08 Aug 2021 History of OCD (obsessive compulsive disorder) (V11.2) (Z86.59) History of Knee pain (719.46) (M25.569) Resolved Date: 08 Aug 2021 History of Screening for prostate cancer (V76.44) (Z12.5) Resolved Date: 08 Aug 2021 History of Screening PSA (prostate specific antigen) (V76.44) (Z12.5) 02/22/2019 Type 2 diabetes mellitus without complication, unspecified whether long-term insulin use (250.00) (E11.9) Surgical History Problems History of Back surgery History of Cataract surgery APRIL 2020 History of Colonoscopy 03/08/19 History of Foot surgery History of Gastric bypass surgery 2009 History of Hammer toe surgery History of Myringotomy History of Rotator cuff repair RIGHT SHOULDER 2011 History of Strabismus surgery Family History Mother Family history of cerebrovascular accident (CVA) (V17.1) (Z82.3) Family history of myocardial infarction (V17.3) (Z82.49) Family history of type 2 diabetes mellitus (V18.0) (Z83.3) Father Family history of Cancer of unknown origin Family history of cerebrovascular accident (CVA) (V17.1) (Z82.3) Family history of glaucoma (V19.11) (Z83.511) Social History Problems Denies alcohol consumption (V49.89) (Z78.9) Never chewed tobacco (V49.89) (Z78.9) No alcohol use No illicit drug use Non-smoker (V49.89) (Z78.9) Patient consumes caffeinated coffee (V49.89) (Z78.9) Patient has living will (V49.89) (Z78.9) Allergies Medication NSAIDs Recorded By: Krysten Adame; 05/25/2019 1:11:38 PM Additional reactions - STOMACH PAIN NonMedication Bee sting Recorded By: Dionne Ontiveros; 05/20/2022 1:57:43 PM Current Meds Medication NameInstruction Azithromycin 250 MG Oral TabletTAKE DIRECTED PER PACKAGE INSTRUCTIONS. FLUoxetine HCl - 10 MG Oral CapsuleTAKE 1 CAPSULE Daily Janumet XR 50-1000 MG Oral Tablet Extended Release 24 HourTake one tablet twice daily with meals Jardiance 10 MG Oral TabletTAKE 1 TABLET BY MOUTH ONCE DAILY methylPREDNISolone 4 MG Oral Tablet Therapy Packas directed on package Vyboerups-Vdazgrjf-VP 30-2-10 MG/5ML Oral Syruptake 5-10 mL po q4-6 hrs prn cough, cold, or allergy symptoms Rosuvastatin Calcium 5 MG Oral Tablettak (more content not included)... Normal [employer] Tobacco Screening.on 023 Fall risk assessment a) No falls within the last year JS[facility]gvzxvu[facility] [employer] Phone: Tobacco use status CPHS b) No YW-Okojkte[facility] [employer] Phone: Tobacco Screening. Yes MP-Uro logy-[facility] [employer] Phone: C Reactive Protein, Serumon 09-06-2022 CRP [Mass/Vol] 0.29 mg/dL [facility] [employer] Phone: Comment on above: REF VALUE< 1.00 C-REACTIVE PROTEINon 023 C-REACTIVE PROTEIN 0.29 mg/dL Normal [facility] Comment on above: Result Comment: REF VALUE < 1.00 Performed By: #### C RP #### [address] [address] Cult, Misc + smearon 023 Bacteria identified Cx Nom (Unsp spec) QD-Cvcsnaa[facility] Work Phone: MISCELLANEOUS CULT./SM.BACT. on 09-06-2022 MISCELLANEOUS CULT./SM.BACT. PATIENT: LYNDA MARTINEZ LOCATION: [facility] BILL#: [id number] : 65 AGE: SEX: M ORDERED BY: MLIE BERNSTEIN SOURCE: WOUND/ABSCESS COLLECTED: 09/06/22 15:00 ANTIBIOTICS AT LISS.: RECEIVED : 09/07/22 01:46 SITE: RIGHT 3RD TOW WOUND R E S U L T S GRAM STAIN FINAL 09/07/22 09:16 NO GRANULOCYTES OR ORGANISMS SEEN. MISCELLANEOUS CULT./SM.BACT. FINAL 09/09/22 09:01 1+ MIXED SKIN LONNY Normal [facility] Comment on above: Performed By: #### M [facility] #### [facility] [address] [address] SEDIMENTATION RATE, ERYTHROC YTEon 09-06-2022 SEDIMENTATION RATE, ERYTHROCYTE 6 mm/h Normal 0 - 20 [facility] Comment on above: Performed By: #### E SRWS #### [address] [address] Sedimentation Rate, Erythroc yteon 09-06-2022 ESR (Bld) [Velocity] 6 mm/h 0 - 20 MP-U rology[facility] Work Phone: IO Ultrasound, measurement p ost-void resid urine and/or bl cap; no imagon 08-21-2022 IO Ultrasound, measurement post-void resid urine and/or bl cap; no imag 15 ml/min QQ-Zhzsoqw[facility] [employer] Work Phone: Office Visit (Urology)on Follow-up visit Diagnoses/Problems Assessed Nocturia (788.43) (R35.1) Benign prostatic hyperplasia with urinary obstruction and other lower urinary tract symptoms (600.21) (N40.1,N13.8) History of kidney stones (V13.01) (Z87.442) Non-smoker (V49.89) (Z78.9) Orders Benign prostatic hyperplasia with urinary obstruction and other lower urinary tract symptoms IO Ultrasound, measurement post-void resid urine and/or bl cap; no imag; Status:Complete - Retrospective Authorization; Done: 21Aug2022 08:11AM Performed:In Office; Due:19Nov2022; Last Updated By:Irene Elam; 08/21/2022 8:11:56 AM;Ordered; For:Benign prostatic hyperplasia with urinary obstruction and other lower urinary tract symptoms; Ordered By:Misael Jay II; Patient Discussion/Summary All available PSA values reviewed, Options discussed. Questions answered. Pros and cons of prostate biopsy reviewed. Other options discussed. Questions answered Discussed MRI Diet changes for prostate health discussed and educational information given. Pros/Cons of prostate health supplements discussed. Treatment options for LUTS reviewed Discussed timed voiding. Discussed fluid and caffeine intake D/C Flomax Start Cialis 5mg QD Discussed UroLift Treatment options for ED reviewed. WIll consider adding 20mg Cialis PRN if needed pros/cons of Testosterone replacement reviewed. Replacement options discussed. Questions answered. Available levels reviewed. Srone anlaysis reviewed Stone prevention discussed. Diet reviewed. Discussed fluid intake KUB ordered F/U Cysto and prostate U/S to discuss Urolift Chief Complaint BPH History of Present IllnessPatient is here for establish for BPH issues.Sx are worsening. States he does not feel like he is emptying completely.. This is worse in AM. .Patient states he does drink a lot of coffee... He states he is having nocturia x 1. He is taking Flomax 0.8mg daily. Most recent PSA was 3.70 on 08/08. PSA was 2.2 in 2019. Hx of kidney stones. Stone analysis from 2019 showed calcium oxalate stones. No recent sx, no recent imaging. Review of Systems Constitutional: No fever, No chills. Eye: Negative. Ear/Nose/Mouth/Throat: Negative. Respiratory: No shortness of breath, No cough. Cardiovascular: No chest pain, No peripheral edema. Gastrointestinal: No nausea, Genitourinary: Negative except as documented in history of present illness. Hematology/Lymphatics: Patient denies being on blood thinners.. Endocrine: Negative. Immunologic: Not immunocompromised. Musculoskeletal: Negative Integumentary: Negative. Neurologic: Alert and oriented X4. Psychiatric: Negative. 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) Mood disorder (296.90) (F39) Myopia (367.1) (H52.10) Myopia with presbyopia of both eyes (367.1,367.4) (H52.13,H52.4) Myopia, left eye (367.1) (H52.12) Nocturia (788.43) (R35.1) Osteoarthritis of carpometacarpal (CMC) joints of both thumbs, unspecified osteoarthritis type (715.94) (M18.0) Pseudophakia of right eye (V43.1) (Z96.1) Type 2 diabetes mellitus without complication, unspecified whether ic designer custom insulin use (250.00) (E11.9) URI (upper respiratory infection) (465.9) (J06.9) Past Medical History Problems Astigmatism of both eyes (367.20) (H52.203) History of Encounter for immunization (V03.89) (Z23) Resolved Date: 08 Aug 2021 Exotropia, intermittent (378.20) (H50.30) History of hypertension (V12.59) (Z86.79) Resolved Date: 08 Aug 2021 History of OCD (obsessive compulsive disorder) (V11.2) (Z86.59) History of Knee pain (719.46) (M25.569) Resolved Date: 08 Aug 2021 History of Screening for prostate cancer (V76.44) (Z12.5) Resolved Date: 08 Aug 2021 History of Screening PSA (prostate specific antigen) (V76.44) (Z12.5) 02/22/2019 Type 2 diabetes mellitus without complication, unspecified whether long-term insulin use (250.00) (E11.9) Surgical History Problems History of Back surgery History of Cataract surgery APRIL 2020 History of Colonoscopy 03/08/19 History of Foot surgery History of Gastric bypass surgery 2009 History of Hammer toe surgery History of Myringotomy History of Rotator cuff repair RIGHT SHOULDER 2011 History of Strabismus surgery Family History Mother Family history of cerebrovascular accident (CVA) (V17.1) (Z82.3) Family history of myocardial infarction (V17.3) (Z82.49) Family history of type 2 diabetes mellitus (V18.0) (Z83.3) Father Family history of Cancer of unknown origin Family history of cerebrovascular accident (CVA) (V17 (more content not included)... Normal [employer] Tobacco Screening.on 023 Fall risk assessment a) No falls within the last year AS-Subociw-P [employer] Phone: Tobacco use status CPHS b) No PA-Obgibsk-Y [facility] Phone: Tobacco Screening. 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,N18.2) Mood disorder (296.90) (F39) Orders Nocturia Start: Tamsulosin HCl - 0.4 MG Oral Capsule; TAKE 2 CAPSULE Bedtime Rx By: Dexter Rios; Dispense: 30 Days ; #:30 Capsule; Refill: 3;For: Nocturia; CRISTELA = N; Verified Transmission to [facility]; Last Updated By: Roscoe PintoJ[employer]s [employer]; 08/06/2022 8:24:54 AM Urology Referral Evaluation and Treatment Evaluate AND Treat Status: Complete Done: 06Aug2022 Ordered;For: Nocturia; Ordered By: Dexter Rios Performed: Due: 04Nov2022; Last Updated By: Dionne Ontiveros; 08/06/2022 8:40:50 AM Type 2 diabetes mellitus without complication, unspecified whether long-term insulin use Start: Jardiance 10 MG Oral Tablet; TAKE 1 TABLET BY MOUTH ONCE DAILY Rx By: Dexter Rios; Dispense: 30 Days ; #:30 Tablet; Refill: 5;For: Type 2 diabetes mellitus without complication, unspecified whether ic designer custom insulin use; CRISTELA = N; Verified Transmission to [facility]; Last Updated By: Roscoe Pinto[employer]; 08/06/2022 8:20:59 AM Hemoglobin A1C; Status:Active; Requested for:06Aug2022; Perform:Lab Services - Lab To Draw (Blood Test); Due:04Nov2022;Ordered; For:Type 2 diabetes mellitus without complication, unspecified whether long-term insulin use; Ordered By:Dexter Rios; Start: Rosuvastatin Calcium 5 MG Oral Tablet; take 1 tablet by mouth once daily Rx By: Dexter Rios; Dispense: 0 Days ; #:30 Tablet; Refill: 3;For: Type 2 diabetes mellitus without complication, unspecified whether ic designer custom insulin use; CRISTELA = N; Verified Transmission to [facility]; Last Updated By: [employer]; 08/06/2022 8:21:01 AM TSH WITH REFLEX TO FREE T4 IF ABNORMAL; Status:Active; Requested for:06Aug2022; Perform:Lab Services - Lab To Draw (Blood Test); Due:04Nov2022;Ordered; For:Type 2 diabetes mellitus without complication, unspecified whether ic designer custom insulin use; Ordered By:Dexter Rios; URI (upper respiratory infection) Start: Azithromycin 250 MG Oral Tablet (Zithromax); TAKE DIRECTED PER PACKAGE INSTRUCTIONS Rx By: Dexter Rios; Dispense: 0 Days ; #:6 Tablet; Refill: 0;For: URI (upper respiratory infection); CRISTELA = N; Verified Transmission to [facility]; Last Updated By: Génesis Pinto; 08/06/2022 8:28:42 AM Start: methylPREDNISolone 4 MG Oral Tablet Therapy Pack; as directed on package Rx By: Dexter Rios; Dispense: 0 Days ; #:1 X 21 Tablet Pack; Refill: 0;For: URI (upper respiratory infection); CRISTELA = N; Verified Transmission to [facility]; Last Updated By: Roscoe [employer]; 08/06/2022 8:28:47 AM Start: Tqvflhmif-Gfkohdxd-KJ 30-2-10 MG/5ML Oral Syrup; take 5-10 mL po q4-6 hrs prn cough, cold, or allergy symptoms Rx By: Dexter Rios; Dispense: 0 Days ; #:120 Milliliter; Refill: 1;For: URI (upper respiratory infection); CRISTELA = N; Verified Transmission to [facility]; Last Updated By: [employer]; 08/06/2022 8:28:47 AM Patient Discussion/Summary Type 2 diabetes, uncontrolled with CKD stage II: Continue Janumet. Diet modifications reviewed. Start Jardiance 10 mg today, repeat A1c for 3 months. Implications of this were reviewed in detail with the patient who expressed understanding. Also start low-dose Crestor. Further recommendations pending results of repeat A1c Elevated TSH: Patient denies any symptoms associated with this so we will just follow with other lab draws unless patient becomes symptomatic. Repeat TSH ordered to be obtained with A1c in 3-month Nocturia/dysuria: Increase Flomax to 0.8 mg nightly and referral to urology was arranged. Follow-up in 6 months unless labs dictate otherwise Chief Complaint Patient here today for follow up appt. with labs drawn prior. Offers no complaints. History of Present IllnessPatient presents in 1 year follow-up. Patient was seen 1 time last year and screening labs were ordered for after that visit. Patient did not obtain these until last week. Currently, patient is taking Janumet and treatment of type 2 diabetes. Prior to last week the most recent draw was in 2019 with an A1c of 9.9. A1c prior to today's visit was 9.3. Additionally, patient's TSH continues to climb and is over 6 but more importantly, patient is now in stage II chronic kidney disease likely secondary to undertreated diabetes with a GFR of 61 and creatinine of 1.35. Lipid panel and PSA were unremarkable. With discussion, patient admits to noncompliance but has over the past 2 months made diet modifications consistent with type 2 diabetes. Prior to that however, patient was admittedly dismissive of this idea. Patient denies lack of energy, polyuria, or polydipsia. Patient does report a weakened urinary stream and di (more content not included)... Normal [employer] Tobacco Screening.on 023 Adult depression screening assessment No [facility] Work Phone: Fall risk assessment a) No falls within the last year [facility] Work Phone: Tobacco use status CPHS b) No [facility] Work Phone: CBCon 08-02-2022 Erythrocyte distribution width (RBC) [Ratio] 12.5 % Normal 11.5 - 14.5 [facility] Comment on above: Performed By: #### C BC #### [address] [address] Hematocrit (Bld) [Volume fraction] 46.9 % Normal 41.0 - 52.0 [facility] Comment on above: Performed By: #### C BC #### [address] [address] Hemoglobin (Bld) [Mass/Vol] 15.0 g/dL Normal 13.5 - 17.5 [facility] Comment on above: Performed By: #### C BC #### [address] [address] MCHC (RBC) [Mass/Vol] 32.0 g/dL Normal 32.0 - 36.0 [facility] Comment on above: Performed By: #### C BC #### [address] [address] MCV (RBC) [Entitic vol] 92 fL Normal 80 - 100 [facility] Comment on above: Performed By: #### C BC #### [address] [address] Platelets (Bld) [#/Vol] 214 10*3/uL Normal 150 - 450 [facility] Comment on above: Performed By: #### C BC #### [address] [address] RBC 5.10 x10E12/L Normal 4.50 - 5.90 [facility] Comment on above: Performed By: #### C BC #### [address] [address] WBC (Bld) [#/Vol] 4.5 10*3/uL Normal 4.4 - 11.3 [facility] Comment on above: Performed By: #### C BC #### [address] [address] COMPREHENSIVE PANELon 2022 Albumin [Mass/Vol] 4.3 g/dL Normal 3.4 - 5.0 [facility] Comment on above: Performed By: #### C MP #### [address] [address] ALP [Catalytic activity/Vol] 85 U/L Normal 33 - 120 [facility] Comment on above: Performed By: #### C MP #### [address] [address] ALT [Catalytic activity/Vol] 18 U/L Normal 10 - 52 [facility] Comment on above: Result Comment: Rizwana ents treated with Sulfasalazine may generate falsely decreased results for ALT. Performed By: #### C MP #### [address] [address] Anion gap [Moles/Vol] 13 mmol/L Normal 10 - 20 [facility] Comment on above: Performed By: #### C MP #### [address] [address] AST [Catalytic activity/Vol] 18 U/L Normal 9 - 39 [facility] Comment on above: Performed By: #### C MP #### [address] [address] Bilirubin [Mass/Vol] 0.7 mg/dL Normal 0.0 - 1.2 [facility] Comment on above: Performed By: #### C MP #### [address] [address] Calcium [Mass/Vol] 9.4 mg/dL Normal 8.6 - 10.3 [facility] Comment on above: Performed By: #### C MP #### [address] [address] Chloride [Moles/Vol] 105 mmol/L Normal 98 - 107 [facility] Comment on above: Performed By: #### C MP #### [address] [address] Creatinine [Mass/Vol] 1.35 mg/dL High 0.50 - 1.30 [facility] Comment on above: Performed By: #### C MP #### [address] [address] GFR/1.73 sq M.predicted among non-blacks MDRD (S/P/Bld) [Vol rate/Area] 61 mL/min/{1.73_m2} Normal >90 [facility] Comment on above: Result Comment: CALC ULATIONS OF ESTIMATED GFR ARE PERFORMED USING THE 2020 CKD-EPI STUDY REFIT EQUATION WITHOUT THE RACE VARIABLE FOR THE IDMS-TRACEABLE CREATININE METHODS. https://jasn.asnjournals.org/content/early//ASN.053378 1326 Performed By: #### C MP #### [address] [address] Glucose [Mass/Vol] 204 mg/dL High 74 - 99 [facility] Comment on above: Performed By: #### C MP #### [address] [address] HCO3 (Bld) [Moles/Vol] 25 mmol/L Normal 21 - 32 [facility] Comment on above: Performed By: #### C MP #### [address] [address] Potassium [Moles/Vol] 4.2 mmol/L Normal 3.5 - 5.3 [facility] Comment on above: Performed By: #### C MP #### [address] [address] Protein [Mass/Vol] 6.8 g/dL Normal 6.4 - 8.2 [facility] Comment on above: Performed By: #### C MP #### [address] [address] Sodium [Moles/Vol] 139 mmol/L Normal 136 - 145 [facility] Comment on above: Performed By: #### C MP #### [address] [address] Urea nitrogen [Mass/Vol] 19 mg/dL Normal 6 - 23 [facility] Comment on above: Performed By: #### C MP #### [address] [address] HEMOGLOBIN A1Con 08-02-2022 Glucose [Mass/Vol] 220 mg/dL Normal [facility] Comment on above: Performed By: #### H BA1E #### [address] [address] HbA1c (Bld) [Mass fraction] 9.3 % Abnormal [facility] Comment on above: Result Comment: Diag nosis of Diabetes-Adults Non-Diabetic: < or = 5.6% Increased risk for developing diabetes: 5.7-6.4% Diagnostic of diabetes: > or = 6.5% . Monitoring of Diabetes Age (y) Therapeutic Goal (%) Adults: >18 <7.0 Pediatrics: 13-18 <7.5 7-12 <8.0 0- 6 7.5-8.5 [employer]. Diabetes Care 33(S1), Jun 2009. Performed By: #### H BA1E #### [address] [address] Hemoglobin A1Con 08-02-2022 Glucose [Mass/Vol] 220 mg/dL [facility] Work Phone: HbA1c (Bld) [Mass fraction] 9.3 % Abnormal -[facility] Work Phone: Comment on above: Diagnosis of Diabete s-Adults Non-Diabetic: < or = 5.6% Increased risk for developing diabetes: 5.7-6.4% Diagnostic of diabetes: > or = 6.5%. Monitoring of Diabetes Age (y) Therapeutic Goal (%) Adults: >18 <7.0 Pediatrics: 13-18 <7.5 7-12 <8.0 0- 6 7.5-8.5 [employer]. Diabetes Care 33(S1), Jun 2009. LIPID PANEL (CORONARY RISK 2 )on 08-02-2022 Cholesterol [Mass/Vol] 128 mg/dL Normal 0 - 199 [facility] Comment on above: Result Comment: . AGE DESIRABLE BORDERLINE HIGH HIGH 0-19 Y 0 - 169 170 - 199 >/= 200 20-24 Y 0 - 189 190 - 224 >/= 225 >24 Y 0 - 199 200 - 239 >/= 240 All ranges are based on fasting samples. Specific therapeutic targets will vary based on patient-specific cardiac risk. . Pediatric guidelines reference:Pediatrics 2011, 128(S5). Adult guidelines reference: NCEP ATPIII Guidelines, RADHA 2001, 258:2486-97 . Venipuncture immediately after or during the administration of Metamizole may lead to falsely low results. Testing should be performed immediately prior to Metamizole dosing. Performed By: #### L IPID #### [address] [address] Cholesterol in HDL [Mass/Vol] 42.0 mg/dL Normal [facility] Comment on above: Result Comment: . AGE VERY LOW LOW NORMAL HIGH 0-19 Y < 35 < 40 40-45 ---- 20-24 Y ---- < 40 >45 ---- >24 Y ---- < 40 40-60 >60 . Performed By: #### L IPID #### [address] [address] Cholesterol in LDL [Mass/Vol] 72 mg/dL Normal 0 - 99 [facility] Comment on above: Result Comment: . NEAR BORD AGE DESIRABLE OPTIMAL HIGH HIGH VERY HIGH 0-19 Y 0 - 109 --- 110-129 >/= 130 ---- 20-24 Y 0 - 119 --- 120-159 >/= 160 ---- >24 Y 0 - 99 100-129 130-159 160-189 >/=190 . Performed By: #### L IPID #### [address] [address] Cholesterol in VLDL [Mass/Vol] 14 mg/dL Normal 0 - 40 [facility] Comment on above: Performed By: #### L IPID #### [address] [address] Cholesterol.total/Cho lesterol in HDL [Mass ratio] 3.0 {ratio} Normal [facility] Comment on above: Result Comment: REF VALUES DESIRABLE < 3.4 HIGH RISK > 5.0 Performed By: #### L IPID #### [address] [address] Triglyceride [Mass/Vol] 71 mg/dL Normal 0 - 149 [facility] Comment on above: Result Comment: . AGE DESIRABLE BORDERLINE HIGH HIGH VERY HIGH 0 D-90 D 19 - 174 ---- ---- ---- 91 D- 9 Y 0 - 74 75 - 99 >/= 100 ---- 10-19 Y 0 - 89 90 - 129 >/= 130 ---- 20-24 Y 0 - 114 115 - 149 >/= 150 ---- >24 Y 0 - 149 150 - 199 200- 499 >/= 500 . Venipuncture immediately after or during the administration of Metamizole may lead to falsely low results. Testing should be performed immediately prior to Metamizole dosing. Performed By: #### L IPID #### [address] [address] Laboratory - Chemistry and C hemistry - challengeon 08-02-2022 Albumin BCP dye [Mass/Vol] 4.3 g/dL 3.4 - 5.0 [facility] Work Phone: ALP [Catalytic activity/Vol] 85 U/L 33 - 120 [facility] Work Phone: ALT With P-5'-P [Catalytic activity/Vol] 18 U/L 10 - 52 [facility] Work Phone: [phone] Comment on above: Patients treated wit h Sulfasalazine may generate falsely decreased results for ALT. Anion gap [Moles/Vol] 13 mmol/L 10 - 20 [facility] Work Phone: [phone] AST With P-5'-P [Catalytic activity/Vol] 18 U/L 9 - 39 [facility] Work Phone: [phone] Bilirubin [Mass/Vol] 0.7 mg/dL 0.0 - 1.2 [facility] Work Phone: [phone] Calcium [Mass/Vol] 9.4 mg/dL 8.6 - 10.3 [facility] Work Phone: [phone] Chloride [Moles/Vol] 105 mmol/L 98 - 107 [facility] Work Phone: [phone] CO2 [Moles/Vol] 25 mmol/L 21 - 32 [facility] Work Phone: [phone] Creatinine [Mass/Vol] 1.35 mg/dL above high threshold See Below [facility] Work Phone: [phone] Comment on above: Reference Range: 0.5 0 - 1.30 Glucose [Mass/Vol] 204 mg/dL above high threshold 74 - 99 [facility] Work Phone: [phone] Potassium [Moles/Vol] 4.2 mmol/L 3.5 - 5.3 [facility] Work Phone: [phone] Protein [Mass/Vol] 6.8 g/dL 6.4 - 8.2 [facility] Work Phone: [phone] Sodium [Moles/Vol] 139 mmol/L 136 - 145 [facility] Work Phone: [phone] TSH Qn 6.02 m[IU]/L above high threshold See Below [facility] Work Phone: [phone] Comment on above: Reference Range: 0.4 4 - 3.98 TSH testing is performed using different testing methodology at [facility] than at other [facility]. Direct result comparisons should only be made within the same method. Urea nitrogen [Mass/Vol] 19 mg/dL 6 - 23 [facility] Work Phone: [phone] Laboratory - Hematology and Cell countson 08-02-2022 Erythrocyte distribution width (RBC) [Ratio] 12.5 % See Below [facility] Work Phone: [phone] Comment on above: Reference Range: 11. 5 - 14.5 Hematocrit (Bld) [Volume fraction] 46.9 % See Below [facility] Work Phone: [phone] Comment on above: Reference Range: 41. 0 - 52.0 Hemoglobin (Bld) [Mass/Vol] 15.0 g/dL See Below [facility] Work Phone: [phone] Comment on above: Reference Range: 13. 5 - 17.5 MCHC (RBC) [Mass/Vol] 32.0 g/dL See Below [facility] Work Phone: [phone] Comment on above: Reference Range: 32. 0 - 36.0 MCV (RBC) [Entitic vol] 92 fL 80 - 100 [facility] Work Phone: [phone] Platelets (Bld) [#/Vol] 214 10*3/uL 150 - 450 [facility] Work Phone: [phone] RBC (Bld) [#/Vol] 5.10 {x10E12/L} See Below [facility] Work Phone: [phone] Comment on above: Reference Range: 4.5 0 - 5.90 WBC (Bld) [#/Vol] 4.5 10*3/uL 4.4 - 11.3 [facility] Work Phone: [phone] Lipid Panelon 08-02-2022 Cholesterol [Mass/Vol] 128 mg/dL 0 - 199 [facility] Work Phone: Comment on above: . AGE DESIRABLE BORD MICHAEL HIGH HIGH 0-19 Y 0 - 169 170 - 199 >/= 200 20-24 Y 0 - 189 190 - 224 >/= 225 >24 Y 0 - 199 200 - 239 >/= 240 All ranges are based on fasting samples. Specific therapeutic targets will vary based on patient-specific cardiac risk.. Pediatric guidelines reference:Pediatrics 2011, 128(S5). Adult guidelines reference: NCEP ATPIII Guidelines, RADHA 2001, 258:2486-97. Venipuncture immediately after or during the administration of Metamizole may lead to falsely low results. Testing should be performed immediately prior to Metamizole dosing. Cholesterol in HDL [Mass/Vol] 42.0 mg/dL [facility] Work Phone: Comment on above: . AGE VERY LOW LOW N ORMAL HIGH 0-19 Y < 35 < 40 40-45 ---- 20- 24 Y ---- < 40 >45 ---- >24 Y ---- < 40 40-60 >60. Cholesterol in LDL [Mass/Vol] 72 mg/dL 0 - 99 [facility] Work Phone: [phone] Comment on above: . NEAR BORD AGE CORY RABLE OPTIMAL HIGH HIGH VERY HIGH 0-19 Y 0 - 109 --- 110-129 >/= 130 ---- 20-24 Y 0 - 119 --- 120-159 >/= 160 ---- >24 Y 0 - 99 100-129 130-159 160-189 >/=190. Cholesterol.total/Cho lesterol in HDL [Mass ratio] 3.0 {ratio} [facility] Work Phone: Comment on above: REF VALUESDESIRABLE < 3.4HIGH RISK > 5.0 Triglyceride [Mass/Vol] 71 mg/dL 0 - 149 [facility] Work Phone: Comment on above: . AGE DESIRABLE BORD MICHAEL HIGH HIGH VERY HIGH 0 D-90 D 19 - 174 ---- ---- ----91 D- 9 Y 0 - 74 75 - 99 >/= 100 ---- 10-19 Y 0 - 89 90 - 129 >/= 130 ---- 20-24 Y 0 - 114 115 - 149 >/= 150 ---- >24 Y 0 - 149 150 - 199 200- 499 >/= 500. Venipuncture immediately after or during the administration of Metamizole may lead to falsely low results. Testing should be performed immediately prior to Metamizole dosing. Lipid Panel 14 mg/dL 0 - 40 [facility] Work Phone: No Panel Informationon 08-02 61 {mL/min/1.73m2} >90 [facility] Work Phone: Comment on above: CALCULATIONS OF CHAVA MATED GFR ARE PERFORMED USING THE 2020 CKD-EPI STUDY REFIT EQUATION WITHOUT THE RACE VARIABLE FOR THE IDMS-TRACEABLE CREATININE METHODS.https://jasn.asnjournals.org/content/early/ N.1830195346 PROSTATE SPEC.AG,SCREENon PROSTATE SPEC.AG,SCREEN 3.70 ng/mL Normal 0.00 - 4.00 [facility] Comment on above: Result Comment: The FDA requires that the method used for PSA assay be reported to the physician. Values obtained with different assay methods must not be used interchangeably. This test was performed at [facility] using the [employer] PSA assay is a two-site immunoenzymatic sandwich assay. The assay is approved for measurement of prostate-specific antigen (PSA)in serum and may be used in conjunction with a digital rectal examination in men 50 years and older as an aid in detection of prostate cancer. 1-Uaikl-nbrdpbpxe inhibitors (e.g. Proscar, Finasteride, Avodart, Dutasteride and Sera) for the treatment of BPH have been shown to lower PSA levels by an average of 50% after 6 months of treatment. Performed By: #### P [facility] #### [address] [place] [address] Prostate Spec.Ag, Screenon 0 08-02-2022 Prostate specific Ag [Mass/Vol] 3.70 ng/mL See Below [facility] Work Phone: Comment on above: Reference Range: 0.0 0 - 4.00The FDA requires that the method used for PSA assay be reported to the physician. Values obtained with different assay methods must not be used interchangeably. This testwas performed at [facility] using the [employer] PSA assay is a two-site immunoenzymatic sandwich assay. The assay is approved for measurement of prostate-specific antigen (PSA)in serum and may be used in conjunction with a digital rectal examination in men 50 years and older as an aid in detection of prostate cancer.3-Jkjwp-ajstzaqix inhibitors (e.g. Proscar, Finasteride, Avodart, Dutasteride and Sera) for the treatment of BPH have been shown to lower PSA levels by an average of 50% after 6 months of treatment. T4 - Free Thyroxine, Serumon 08-02-2022 Free T4 [Mass/Vol] 0.89 ng/dL See Below [facility] Work Phone: Comment on above: Reference Range: 0.6 1 - 1.12 Thyroxine Free testing is performed using different testing methodology at [facility] than at other [facility]. Direct result comparisons should only be made within the same method.. Biotin can cause falsely elevated free T4 results. Patients taking a Biotin dose of up to 10 mg/day should refrain from taking Biotin for 24 hours before sample collection. Patient taking a Biotin dose of >10 mg/day should consult with their physician or the laboratory before the blood draw. THYROXINE,FREEon 08-02-2022 THYROXINE,FREE 0.89 ng/dL Normal 0.61 - 1.12 [facility] Comment on above: Result Comment: Thyr oxine Free testing is performed using different testing methodology at [facility] than at other [facility]. Direct result comparisons should only be made within the same method. . Biotin can cause falsely elevated free T4 results. Patients taking a Biotin dose of up to 10 mg/day should refrain from taking Biotin for 24 hours before sample collection. Patient taking a Biotin dose of >10 mg/day should consult with their physician or the laboratory before the blood draw. Performed By: #### T 4FRE #### [facility] [address] [address] TSH WITH REFLEX TO FREE T4 I F ABNORMALon 08-02-2022 TSH Qn 6.02 m[IU]/L High 0.44 - 3.98 [facility] Comment on above: Result Comment: TSH testing is performed using different testing methodology at [facility] than at other [facility]. Direct result comparisons should only be made within the same method. Performed By: #### T HYDS #### [address] [address] FOOT COMPLETE, MIN 3 VIEWSon 07-03-2022 FOOT COMPLETE, MIN 3 VIEWS Patient Name: LYNDA MARTINEZ STUDY: FOOT; COMPLETE, MIN 3 VIEWS; Right; 07/03/2022 10:51 am INDICATION: pain right foot hammer toe right foot. COMPARISON: None. ACCESSION NUMBER(S): [id number] ORDERING CLINICIAN: ALICE VALENTINO FINDINGS: Postoperative changes screw fixation 3rd-5th phalanges, with intact hardware. No fracture or dislocation. Mild degenerative change of the 1st MTP and TMT joints. No significant soft tissue swelling. Small plantar calcaneal enthesophyte. IMPRESSION: Postoperative changes screw fixation 3rd-5th phalanges with intact hardware. Electronically signed by: NATASHA LUCAS MD Normal [facility] Tobacco Screening.on 022 Adult depression screening assessment No [facility] [facility] Work Phone: Fall risk assessment a) No falls within the last year [facility] Work Phone: Tobacco use status CPHS b) No [facility] Work Phone: Glucose POCon 03-08-2019 Glucose [Mass/Vol] 155 mg/dL High 70-99 [facility] Comment on above: Performed By: #### 5 [id number] #### [facility] [address] [address] XR Spine Cervical Comp Flex/ [place] 10-29-2018 XR Spine Cervical Comp Flex/Ext Exam Date/Time: 10/29/2018 09:28 EDT Reason for Exam: Neck Pain Report STUDY: XR Spine Cervical Comp Flex/Ext; 10/29/2018 9:28 am INDICATION: Neck Pain. COMPARISON: None. ACCESSION NUMBER(S): [id number] ORDERING CLINICIAN: Rajiv Ayers TECHNIQUE: 8 views of the cervical spine including AP, lateral, lateral swimmer's view, lateral flexion and extension views, open-mouth odontoid view and bilateral oblique views were obtained. FINDINGS: There is no evidence of acute fracture identified. The vertebral bodies are well aligned without evidence of subluxation. No prevertebral soft tissue swelling is present. The disc spaces are well preserved throughout without significant degenerative changes. Mild facet degenerative changes are seen throughout the cervical spine. No gross osseous neural foraminal narrowing is seen bilaterally. No abnormal motion is seen on the flexion and extension views. IMPRESSION: 1. No evidence of acute fracture. FINAL REPORT Dictated: 10/29/2018 10:11 am Gene Villegas MD Signed (Electronic Signature): 10/29/2018 10:11 am Signed by: Gene Villegas MD Technologist: [facility] XR Knee Complete Righton XR Knee Complete Right Exam Date/Time: 10/12/2018 08:35 EDT Reason for Exam: right knee pain Report STUDY: XR Knee Complete Right; 10/12/2018 8:35 am INDICATION: right knee pain. COMPARISON: None. ACCESSION NUMBER(S): [id number] ORDERING CLINICIAN: Sergei Quinteros TECHNIQUE: 4 views of the right knee including AP, lateral, patellar sunrise and knee tunnel projections were obtained. FINDINGS: There is no evidence of acute fracture or dislocation identified. The joint spaces are well preserved throughout without significant degenerative changes. No suprapatellar joint effusion is present. IMPRESSION: 1. No acute fracture or dislocation. FINAL REPORT Dictated: 10/12/2018 2:05 pm Gene Villegas MD Signed (Electronic Signature): 10/12/2018 2:05 pm Signed by: Gene Villegas MD Technologist: [facility] CNOVon 03-20-2017 CNOV Office Visit ([id number]) LYNDA MARTINEZ ([id number]) 1965 MDate Time Provider Mnhraczjof45/5/17 11:15 AM PARTH SOOD [id number] During your visit today, we recorded the following information about you: Respiration Weight Height 18/minute 108 kg 1.778 Perri Craig 04/11/2017 11:01 AM SignedREVIEW OF SYSTEMS:GENERAL: Well developed, well nourished. No acute distressPAIN: Occasional B Foot PainCARDIOVASCULAR: Negative for chest pain, leg swelling and palpations.MSK: Negative for joint pain, swelling, back pain, muscle pain.SKIN: Negative for lesions, rash, itching, metal sensitivityNEURO: Negative for seizure, trauma, numbness/tingling of extremities.ENDOCRINE: Negative for Diabetes Type 1 and Type 2HEMATOLOGY: Negative for excessive bleeding, clots, bleeding disorders.Rajiv Winter DPM 04/11/2017 11:01 AM SignedThis 51 year old male presents for a post op visit hammertoe correction of 2-5bilaterally. Patient states they are doing well. He reports that he isconcerned that the pins of digits 3-5 on the right may be backing out like theydid on the left. He reports, however that there is no pain of this and that thedigits remain straight. In addition he reports that there is mallet toecontracture of digits 2-5 on the left, he reports that this is not painful butdoes get tight. The patient has no other pedal complaints.PAST MEDICAL HISTORYDiagnosis Date- Hammer toe of right foot- Hyperglycemia- Laceration of foot R foot wound after stepping on staple- Left foot pain- Otalgia- ToothacheCurrent Outpatient Prescriptions:blood sugar diagnostic (ACCU-CHEK ALPHONSO PLUS TEST STRP) test strip Test bloodglucose twice daily and prnBlood-Glucose Meter (ACCU-CHEK ALPHONSO PLUS METER) misc 1 Each as directed.metFORMIN (GLUCOPHAGE) 500 mg tablet Take 1 tablet by mouth twice daily withmeals.Blood-Glucose Meter misc 1 Each once daily as needed. Patient uses One TouchUltra Glucometer. E11.9Lancets lancets Patient uses One Touch Delica Lancetes and tests once daily.E11.9Blood-Glucose Meter misc 1 Each once daily. DX E11.9lancets-blood glucose strips 30 gauge cmpk 1 Each once daily. DX E11.9No current facility-administered medications for this visit.ALLERGIESAllergen Reactions- Nsaids (Non-Steroid* UnknownObjective:Patient presents weightbearing as tolerated to right leg.Problem focus examination to the right lower extremity:Incision site is well coapted without evidence of dehiscence. Minimal erythemaand edema surrounding surgical site. No drainage. No lymphadenopathy. Nolymphangitis. No surrounding cellulitis. No signs of infection.Patient has no pain to palpation of calf. The calf is soft, supple andnontender without evidence of DVT. Negative Alfred's test. Satisfactoryalignment is noted.Pedal pulses are palpable. Capillary refill time is less than three seconds toall digits. Sensations are intact to light touch.Mild contraction of the right 2nd toe at the DIPJ with stability and rectusalignment of the PIPJ. Digits 3-5 are rectus and stable and rigid.Contracture of 2-5 left at the DIPJ, semi-reducible, there is no pain withattempted reduction.There is no pain with ROM of the MTPJ 1-5 bilaterally.There is no pain with palpation of the distal phalanx of digits 3-5 on theright and there is no palpable hardware.There is good CFT to all digits.Radiographs:3 views of the right foot were takenThese films showed: There is intact hardware to digits 3 4 and 5. There is nobreakage, backing out, or subsidence of the hardware. The toes are in a rectusalignment. There is no noted soft tissue edema or emphysema. There is goodalignment of the 2nd digit at the MTPJ, there is mild contracture at the DIPJ.3 views of the left foot were takenThese films showed: These showed good alignment of the MTPJ 2-4, there is mildadduction of the 5th MTPJ. There is also noted mallet contracture of digits2-5. There are no additional cortical breaks, erosions, or thickenings. Thereis no noted soft tissue edema or emphysema.Assessment:Sati sfactory post-operative progress progressing well.Plan:The patient was educated on clinical examination findings, postoperativeprognosis and protocol. All questions were answered to patient's apparentsatisfaction.- Patient to continue weightbearing as tolerated to the operative extremity.- Activities dictated by his symptoms.- Patient understands that he may need flexor tenotomy of digits 2-5 left and 2right in the future.- Patient understands that the screws on the right are not backing out andsince there is no pain, surgical intervention is not indicated at this time.- XR were taken and reviewed with patient, patient understands that no hardwareis backing out.- Patient is transitioning to for medical care due to health insurancecoverage, however can return here at any time.Stanley Winter DPM PGY3I personally saw and evaluated the patient. I reviewed the resident's note. Iagree with the resident's assessment and plan unless otherwise noted.Parth Sood DPM, FACFASReferring Provider: PARTH SOOD [[id number]]Allergies As of Date: 03/20/2017 Noted Allergy ReactionNSAIDS (NON-STEROIDAL ANTI-INFLAM*04/20/2015 16 - UnknownDate Reviewed: 03/20/2017Reviewed by: Jese Craig - Fully AssessedReason for Visit: Surgical Followup [104] Cmt: B Feet DOS 01/17/2016Primary Visit Diagnosis:Acquired claw toe of right foot [M20.5X1] Other Visit Diagnoses:Hammer toe of right foot [M20.41] Postoperative state [Z98.890]Order(s):XR FOOT GENERAL 3V AP/LAT/OBL LT [4153189] Order #: [id number] XR FOOT GENERAL 3V AP/LAT/OBL RT [[id number]] Order #: [id number] as of 03/20/2017 Sig: BLOOD SUGAR DIAGNOSTIC STRIPS Test blood glucose twice annabelle* BLOOD-GLUCOSE METER 1 Each as directed. METFORMIN 500 MG TABLET Take 1 tablet by mouth twice * BLOOD-GLUCOSE METER 1 Each once daily as needed. * LANCETS Patient uses One Touch Delica* BLOOD-GLUCOSE METER 1 Each once daily. DX E11.9 LANCETS 30 GAUGE AND BLOOD GL* 1 Each once daily. DX E11.9Problem List As Of Date 03/20/2017 Noted Resolved Clawtoe, acquired [M20.5X9] INVALID FOR*03/25/2016 Postoperative state [Z98.890] INVALID FOR* Hyperglycemia [R73.9] 11/04/2016 Hammer toe of right foot [M20.41] Clawtoe, acquired [M20.5X9] INVALID FOR* Post-operative infection [T81.4XXA] INVALID FOR*11/04/2016 More... Controlled type 2 diabetes mellitus without com*INVALID FOR* History of Lizbeth-en-Y gastric bypass [Z98.84] INVALID FOR* More...Disposition: Return if symptoms worsen or fail to improve.Follow-up and Disposition History RecordedEncounter Number: [id number] Status:Closed by PARTH SOOD DPM on 04/11/17 [facility] PROGRESSon 03-20-2017 PROGRESS HNO ID: [id number] thor: Rajiv (Laura) TyreeService: (none)Author Type: ResidentType: Progress NotesFiled: 04/11/2017 11:01 AMNote Text:This 51 year old male presents for a post op visit hammertoe correction of2-5 bilaterally. Patient states they are doing well. He reports that he isconcerned that the pins of digits 3-5 on the right may be backing out likethey did on the left. He reports, however that there is no pain of thisand that the digits remain straight. In addition he reports that there ismallet toe contracture of digits 2-5 on the left, he reports that this isnot painful but does get tight. The patient has no other pedal complaints.PAST MEDICAL HISTORYDiagnosis Date- Hammer toe of right foot- Hyperglycemia- Laceration of foot R foot wound after stepping on staple- Left foot pain- Otalgia- ToothacheCurrent Outpatient Prescriptions:blood sugar diagnostic (ACCU-CHEK ALPHONSO PLUS TEST STRP) test strip Testblood glucose twice daily and prnBlood-Glucose Meter (ACCU-CHEK ALPHONSO PLUS METER) misc 1 Each as directed.metFORMIN (GLUCOPHAGE) 500 mg tablet Take 1 tablet by mouth twice dailywith meals.Blood-Glucose Meter misc 1 Each once daily as needed. Patient uses [employer] Ultra Glucometer. E11.9Lancets lancets Patient uses One Touch Delica Lancetes and tests oncedaily. E11.9Blood-Glucose Meter misc 1 Each once daily. DX E11.9lancets-blood glucose strips 30 gauge cmpk 1 Each once daily. DX E11.9No current facility-administered medications for this visit.ALLERGIESAllergen Reactions- Nsaids (Non-Steroid* UnknownObjective:Patient presents weightbearing as tolerated to right leg.Problem focus examination to the right lower extremity:Incision site is well coapted without evidence of dehiscence. Minimalerythema and edema surrounding surgical site. No drainage. Nolymphadenopathy. No lymphangitis. No surrounding cellulitis. No signsof infection.Patient has no pain to palpation of calf. The calf is soft, supple andnontender without evidence of DVT. Negative Alfred's test. Satisfactoryalignment is noted.Pedal pulses are palpable. Capillary refill time is less than threeseconds to all digits. Sensations are intact to light touch.Mild contraction of the right 2nd toe at the DIPJ with stability andrectus alignment of the PIPJ. Digits 3-5 are rectus and stable and rigid.Contracture of 2-5 left at the DIPJ, semi-reducible, there is no pain withattempted reduction.There is no pain with ROM of the MTPJ 1-5 bilaterally.There is no pain with palpation of the distal phalanx of digits 3-5 on theright and there is no palpable hardware.There is good CFT to all digits.Radiographs:3 views of the right foot were takenThese films showed: There is intact hardware to digits 3 4 and 5. There isno breakage, backing out, or subsidence of the hardware. The toes are in arectus alignment. There is no noted soft tissue edema or emphysema. Thereis good alignment of the 2nd digit at the MTPJ, there is mild contractureat the DIPJ.3 views of the left foot were takenThese films showed: These showed good alignment of the MTPJ 2-4, there ismild adduction of the 5th MTPJ. There is also noted mallet contracture ofdigits 2-5. There are no additional cortical breaks, erosions, orthickenings. There is no noted soft tissue edema or emphysema.Assessment:Sati sfactory post-operative progress progressing well.Plan:The patient was educated on clinical examination findings, postoperativeprognosis and protocol. All questions were answered to patient's apparentsatisfaction.- Patient to continue weightbearing as tolerated to the operativeextremity.- Activities dictated by his symptoms.- Patient understands that he may need flexor tenotomy of digits 2-5 leftand 2 right in the future.- Patient understands that the screws on the right are not backing out andsince there is no pain, surgical intervention is not indicated at thistime.- XR were taken and reviewed with patient, patient understands that nohardware is backing out.- Patient is transitioning to for medical care due to health insurancecoverage, however can return here at any time.Stanley Winter DPM PGY3I personally saw and evaluated the patient. I reviewed the resident'snote. I agree with the resident's assessment and plan unless otherwisenoted.Parth Sood DPM, FACFAS [facility] PROGRESS HNO ID: [id number] thor: Jese Carney: (none)Author Type: (none)Type: Progress NotesFiled: 04/11/2017 11:01 AMNote Text:REVIEW OF SYSTEMS:GENERAL: Well developed, well nourished. No acute distressPAIN: Occasional B Foot PainCARDIOVASCULAR: Negative for chest pain, leg swelling and palpations.MSK: Negative for joint pain, swelling, back pain, muscle pain.SKIN: Negative for lesions, rash, itching, metal sensitivityNEURO: Negative for seizure, trauma, numbness/tingling of extremities.ENDOCRINE: Negative for Diabetes Type 1 and Type 2HEMATOLOGY: Negative for excessive bleeding, clots, bleeding disorders. [facility] Vital Signs Date Time Vital Sign Value Performing Clinician Facility 06-26-2023 12:48-0500 Body mass index (BMI) [Ratio] 28.87 kg/m2 Nadine CRABTREE Work Phone: [facility] 06-26-2023 12:48-0500 Body weight 93.89 kg Nadine CRABTREE Work Phone: [facility] 09-09-2022 09:02-0400 Body mass index (BMI) [Ratio] 32.15 kg/m2 Dexter M Newbill Work Phone: [facility] Work Phone: 09-09-2022 09:02-0400 Body surface area Derived from formula 2.24 m2 Dexter M Newbill Work Phone: [facility]Gbpokhg[facility]Kwehhzc Work Phone: 09-09-2022 09:02-0400 Body weight 104.55 kg Dexter M Newbill Work Phone: [facility]Zetcdpy[facility]Enrclnx Work Phone: 08-21-2022 08:06-0500 Body mass index (BMI) [Ratio] 32.08 kg/m2 Dexter Gildardo Newbill Work Phone: ZN[facility]Dxazoib-Zrswnvz Work Phone: 08-21-2022 08:06-0500 Body surface area Derived from formula 2.24 m2 Dexter Newbill Work Phone: WJ[facility]Lzcunam-Gqvunvn Work Phone: 08-21-2022 08:06-0500 Body weight 104.33 kg Dexter Newbill Work Phone: VW[facility]Nevynbc-Zsijefv Work Phone: 08-21-2022 08:06-0500 Respiratory rate 16 /min Dexter Newbill Work Phone: RR-Owbluqj-Klszmpk Work Phone: 08-06-2022 08:02-0500 Body height 180.34 cm Dexter Newbill Work Phone: [facility] Work Phone: 08-06-2022 08:02-0500 Body mass index (BMI) [Ratio] 32.13 kg/m2 Dexter Newbill Work Phone: [facility] Work Phone: 08-06-2022 08:02-0500 Body surface area Derived from formula 2.24 m2 Dexter Gildardo Newbill Work Phone: [facility] Work Phone: 08-06-2022 08:02-0500 Body temperature 97.1 [degF] Dexter Gildardo Newbill Work Phone: [facility] Work Phone: 08-06-2022 08:02-0500 Body weight 104.51 kg Dexter Gildardo Newbill Work Phone: [facility] Work Phone: 08-06-2022 08:02-0500 Diastolic blood pressure 75 mm[Hg] Dexter Gildardo Newbill Work Phone: [facility] Work Phone: 08-06-2022 08:02-0500 Heart rate 94 /min Dexter Gildardo Newbill Work Phone: [facility] Work Phone: 08-06-2022 08:02-0500 SaO2% (BldA) [Mass fraction] 94 % Dexter Gildardo Newbill Work Phone: [facility] Work Phone: 08-06-2022 08:02-0500 Systolic blood pressure 148 mm[Hg] Dexter Gildardo Newbill Work Phone: [facility] Work Phone: 01-08-2022 19:30-0400 Diastolic blood pressure 73 mm[Hg] Dexter Newbill Other Phone: [facility] 01-08-2022 19:30-0400 Heart rate 90 /min Dexter Newbill Other Phone: [facility] 01-08-2022 19:30-0400 Respiratory rate 20 /min Dexter Newbill Other Phone: [facility] 01-08-2022 19:30-0400 SaO2% (BldA) [Mass fraction] 95 % Dexter Britol Other Phone: [facility] 01-08-2022 19:30-0400 Systolic blood pressure 121 mm[Hg] Dexter Britol Other Phone: [facility] 01-08-2022 17:18-0400 Body temperature 98.24 [degF] Dexter Rios Other Phone: [facility] 01-08-2022 17:18-0400 Body weight 105 kg Dexter Rios Other Phone: [facility] 08-08-2021 07:47-0500 Body height 180.34 cm Dexter Rios Work Phone: [facility] Work Phone: 08-08-2021 07:47-0500 Body mass index (BMI) [Ratio] 33.01 kg/m2 Dexter Rios Work Phone: [facility] Work Phone: 08-08-2021 07:47-0500 Body surface area Derived from formula 2.27 m2 Dexter Rios Work Phone: [facility] Work Phone: 08-08-2021 07:47-0500 Body temperature 97 [degF] Dexter Rios Work Phone: [facility] Work Phone: 08-08-2021 07:47-0500 Body weight 107.37 kg Dexter Rios Work Phone: [facility] Work Phone: 08-08-2021 07:47-0500 Diastolic blood pressure 84 mm[Hg] Dexter Rios Work Phone: [facility] Work Phone: 08-08-2021 07:47-0500 Heart rate 88 /min Dexter Rios Work Phone: [facility] Work Phone: 08-08-2021 07:47-0500 SaO2% (BldA) [Mass fraction] 99 % Dexter Rios Work Phone: [facility] Work Phone: 08-08-2021 07:47-0500 Systolic blood pressure 138 mm[Hg] Dexter Rios Work Phone: [facility] Work Phone: Encounters Encounter Date Encounter Type Care Provider Facility Start: 03-01-2025 End: 03-01-[address] Rajiv Hdz MD Work Phone: -[facility] Start: 03-01-2025 End: 03-01-[address] Rajiv Hdz MD [facility] Work Phone: Start: 03-01-2025 End: 03-01-2025 ambulatory Rajiv Hdz Facility:[facility] Start: 01-02-2024 ambulatory KODY [facility] Ambulatory Start: 06-26-2023 End: 06-27-2023 ambulatory NADINE Ewing [facility] Ambulatory Start: 06-26-2023 End: 06-26-2023 Office outpatient visit 25 minutes [facility] [employer] CON[employer]ULTANT Work Phone: [facility] Comment on above: Osteoarthritis of ca rpometacarpal (CMC) joint of both thumbs (Primary Dx); Acute pain of right knee; Knee effusion, right; Primary osteoarthritis of right knee Start: 03-13-2023 End: 03-14-2023 ambulatory [facility] Start: 01-22-[address] [place] Facility:[id number] Start: 09-09-[address] [place] Facility:[id number] Start: 09-09-2022 Patient encounter procedure Dexter Gildardo Britol Work Phone: [facility] Work Phone: Start: 08-21-2022 Office outpatient ne w 45 minutes Dexter Gildardo Britol Work Phone: [facility] Work Phone: Start: 08-21-[address] [place] Facility:[id number] Start: 08-06-2022 ambulatory Mr. Dexter Rios Facility:[id number] Start: 08-06-2022 Office outpatient vi sit 25 minutes Dexter Gildardo Britol Work Phone: [facility] Work Phone: Start: 07-03-[address] Alice Valentino Fac ility:[id number] Start: 04-25-2022 AUDIT Dexter Rios Work Phone: [facility] Work Phone: Start: 01-08-2022 End: 01-08-2022 Emergency department patient visit Shaun Cerna [facility] Emergency 08 Start: 09-11-2021 Image Encounter Dexter Gildardo Britol Work Phone: zz DO NOT USE - [facility] Only Start: 08-08-2021 Office outpatient ne w 45 minutes Dexter Gildardo Reillybill Work Phone: [facility] Work Phone: Start: 07-19-2020 Patient encounter procedure Rajiv Ayers MD [facility] Work Phone: Start: 07-18-2020 Patient encounter procedure Rajiv Ayers MD [facility] 300 Work Phone: Start: 07-11-2020 Patient encounter procedure Rajiv Ayers MD [facility] 300 Work Phone: Start: 06-05-2020 Patient encounter procedure Rajiv Ayers MD [facility] 300 Work Phone: Start: 04-19-2020 Patient encounter procedure Rajiv Ayers MD [facility] 300 Work Phone: Start: 04-10-2020 Patient encounter procedure Rajiv Ayers MD [facility] 300 Work Phone: Start: 03-30-2020 Patient encounter procedure Rajiv Ayers MD [facility] 300 Work Phone: Start: 01-24-2020 Patient encounter procedure Rajiv Ayers MD [facility] 300 Work Phone: Start: 12-28-2019 Patient encounter procedure Rajiv Ayers MD [facility] 300 Work Phone: Start: 11-05-2019 Patient encounter procedure Rajiv Ayers MD [facility] 300 Work Phone: Start: 10-26-2019 Patient encounter procedure Raijv Ayers MD [facility] 300 Work Phone: Start: 06-22-2019 Patient encounter procedure Ian Noble [facility] Work Phone: Start: 03-08-2019 Patient encounter procedure Ian Noble [facility] Work Phone: Start: 03-20-2017 End: 03-20-2017 Ambulatory [facility] SOOD [facility] Procedures Date Procedure Procedure Detail Performing Clinician Start: 03-01-2025 Prostate specific an tigen measurement Dr. Rajiv Hdz MD Work Phone: Comment on above: This test was perfor med using the [employer] tPSA method. Measured values of a patient sample can vary depending on the testing procedure used. PSA values determined on patient samples by different testing procedures cannot be used interchangeably. If there is a change in PSA assays while monitoring therapy, sequential testing should be performed to confirm baseline values. Start: 06-26-2023 Arthrocentesis aspir &/inj small jt/bursa w/o us Nadine Gildardo Juan [employer]ULT[employer] Work Phone: Start: 06-26-2023 XR HAND 3+ VIEWS BILATERAL NADINE JUAN Start: 06-26-2023 XR KNEE RIGHT 3 VIEWS S EDUARDA JUAN Start: 03-13-2023 TOBACCO SCREEN [facility] ME DICAL PLAN ONLY DEXTER RIOS Start: 01-22-2023 Follow-up visit Start: 08-02-2022 Lipid 1996 panel - S dayana or Plasma Nadine Juan [employer] CONSULTANT Work Phone: Start: 01-08-2022 End: 01-08-2022 EKG impression Dylan Hutchinson Start: 03-08-2019 Colonoscopy Nadine paul [employer]SULTANT Work Phone: Cataract surgery Rajiv Ayers MD Comment on above: APRIL 2020; Colonoscopy Ian Aide Comment on above: 03/08/19; Esophagogastrostomy, antesternal or antethoracic Ian Furness Comment on above: 2009; Hammer toe operation Dexter Rios Work Phone: Operative procedure on foot Ian Furness Procedure on back Ian Fu rness Repair of musculoten dinous cuff of shoulder Ian Furnguerrero Comment on above: RIGHT SHOULDER 2011; Strabismus surgery Rosalio Ayers MD Tympanotomy Dexter Rios Work Phone: Plan of Treatment Date Care Activity Detail Author Start: 03-08-2029 Screening for malignant neoplasm of colon [facility] [facility] Start: 08-02-2023 Lipid panel Lipid Panel [facility] Start: 06-25-2023 End: 06-25-2024 XR Knee - right 3 Views XR knee right 3 views Imaging Routine Acute pain of right knee Expected: 06/25/2023, Expires: 06/25/2024 [facility] Work Phone: Comment on above: Expected: 06/25/2023 , Expires: 06/25/2024 Start: 06-23-2023 End: 06-23-2024 XR Hand - bilateral 3 Views XR hand 3+ views bilateral Imaging Routine Osteoarthritis of carpometacarpal (CMC) joint of both thumbs Expected: 06/23/2023, Expires: 06/23/2024 [facility] Service Area Work Phone: Comment on above: Expected: 06/23/2023 , Expires: 06/23/2024 Start: 02-14-2023 Influenza vaccination Influenza Vacc ine (#1) [facility] Start: 01-22-2023 FUV, Provider: Misael Jay II, Status: Pen, Time: 8:45 AM FUV, Provider: Misael Jay II, Status: Pen, Time: 8:45 AM [facility] Work Phone: Start: 10-30-2022 Hemoglobin A1c measurement Diabetes: Hemoglobin A1C [facility] Start: 09-06-2022 CYSTOSCOPY, Provider : EPISCOPAL UROLOGY PROCEDURE RM,[id number], Status: Pen, Time: 8:30 AM CYSTOSCOPY, Provider: EPISCOPAL UROLOGY PROCEDURE RM,[id number], Status: Pen, Time: 8:30 AM [facility] Work Phone: Start: 08-21-2022 NPV, Provider: Misael Jay II, Status: Pen, Time: 8:00 AM NPV, Provider: Misael Jay II, Status: Pen, Time: 8:00 AM [facility] Work Phone: Start: 02-06-2022 FUV, Provider: Dexter Rios, Status: Pen, Time: 7:30 AM FUV, Provider: Dexter Rios, Status: Pen, Time: 7:30 AM [facility] Work Phone: Start: 02-06-2022 Patient encounter procedure [facility] Start: 06-05-2021 Glaucoma screening Diabetes: R etinopathy Screening [facility] Start: 04-16-2021 DTaP/Tdap/Td Vaccine s (2 - Td or Tdap) DTaP/Tdap/Td Vaccines (2 - Td or Tdap) [facility] Start: 2015 Zoster Vaccines (1 o f 2) Zoster Vaccines (1 of 2) [facility] Start: 1984 Urine screening for protein Diabetes: Urine Protein Screening [facility] Start: 1983 Hepatitis C screening Hepatitis C Sc reecarmen [facility] Start: 1975 Diabetic foot examination Diabetes: Foot Exam [facility] Start: 1971 Pneumococcal Vaccine : Pediatrics (0 to 5 Years) and At-Risk Patients (6 to 64 Years) (1 - PCV) Pneumococcal Vaccine: Pediatrics (0 to 5 Years) and At-Risk Patients (6 to 64 Years) (1 - PCV) [facility] Start: 1966 MMR Vaccines (1 of 1 - Standard series) MMR Vaccines (1 of 1 - Standard series) [facility] Start: 1965 COVID-19 Vaccine (#1) COVID-19 Vacci ne (#1) [facility] Start: 1965 Hepatitis B Vaccines (1 of 3 - 3-dose series) Hepatitis B Vaccines (1 of 3 - 3-dose series) [facility] Start: 1965 HIV screening HIV Screening [facility] Start: 1965 Screening for malignant neoplasm of colon [facility] Start: 1965 Yearly Adult Physical Yearly Adult P hysical [facility] XR Hand - bilateral 3 Views XR hand 3+ views bilateral Imaging Routine Osteoarthritis of carpometacarpal (CMC) joint of both thumbs 06/26/2023 8:24 AM [facility] Work Phone: XR Knee - right 3 Views XR knee right 3 views Imaging Routine Acute pain of right knee 06/26/2023 8:23 AM [facility] Work Phone: Immunizations Immunization Date Immunization Notes Care Provider Kelsey sal 04-16-2011 tetanus toxoid, redu zaira diphtheria toxoid, and acellular pertussis vaccine, adsorbed Ian Noble [facility] Work Phone: Comment on above: Series: 04-27-2009 influenza, seasonal, injectable Dexter Rios Work Phone: [facility] Work Phone: 04-27-2009 influenza virus vaccine, unspecified formulation aNdine Martinez [facility] Work Phone: [facility] Work Phone: Payers Date Payer Category Payer Self-pay 2025 Unknown [id number] 2022 Unknown 2022 Unknown [id number] 1965 Unknown [id number] 2.16. [id number] 1965 Unknown [id number] 2.16. [id number] 1965 Unknown [id number] 2.16. [id number] 1965 Unknown [id number] 2.16. [id number] 1965 Unknown [id number] 2.16.84 [id number] 1965 Unknown [id number] 2.16.8 [id number] 1965 Unknown [id number] 2.16.8 [id number] 1965 Unknown [id number] 2.16.84 [id number] 1965 Unknown [id number] 2.16.84 [id number] Unknown [id number] Unknown [id number] Unknown [id number] 2.16.8 [id number] Social History Date Type Detail Facility Assertion Tobacco smoking consumption unknown (finding) -[facility] Work Phone: Start: 06-26-2023 Patient has living will Patient has living will -[facility] Work Phone: Tobacco smoking consumption unknown [facility] Start: 06-26-2023 Tobacco smoking stat us NHIS Never smoked tobacco [facility] Work Phone: Start: 06-26-2023 Alcohol intake Lifetime non-d aminta (finding) [facility] Work Phone: Start: 06-26-2023 Tobacco use panel [facility] Start: 1965 [facility] Work [facility] Start: 06-16-2023 End: 06-26-2023 Exposure to SARS-CoV-2 (event) Not sure [facility] Start: 1965 Sex Assigned At Male W [facility] Medical Equipment Procedure Code Equipment Code Equipment Original Text Equipment Identifier Dates Lens, Intraocular, [id number] 19.0d Case [id number] Start: 03-29-2020 Comment on above: Description: Convert ed from Care Acute. Please see archived information for full log information. Functional Status Date Assessment Result Facility NEGATED: Highlighted row Functional performance Functional status health issues are not documented Disease [facility] Work Phone: Mental Status Date Assessment Result Facility NEGATED: Highlighted row Cognitive function [Interpretation] Cognitive status health issues are not documented [facility] Work Phone: Clinical Notes 08-08-2022 to 06-26-2023 Assessment & Plan Note - BRO Martin - 06/26/2023 1:09 PM ESTAssessment & Plan Note - BRO Martin - 06/26/2023 1:09 PM EST Note Date & Type Note Facility 06-26-2023 Evaluation + Plan note Associated Problem(s): Osteoarthritis of carpometacarpal (CMC) joint of both thumbs We discussed symptom control with OTC Tylenol and topical pain relievers. Instructed on 2 grams diclofenac gel 4 times daily. Patient may also use heat or ice, whichever offers better relief. Continue use of thumb spica brace at nighttime and as needed with aggravating activities. We did discuss risk and benefits of cortisone injection for acute flare of symptoms, pt tolerated injection well with slight sx improvement at time of discharge. HEP for hand exercises provided, collaborated case with Dr. Logan on date of visit. Message to Dr. Coon to inquire about BioPro thumb joint. Patient in agreement with plan of care. This note was generated using [employer] software. It may contain errors in wording, punctuation or spelling. [facility] Work Phone: 06-26-2023 Miscellaneous Notes Associated Problem(s): Osteoarthritis of carpometacarpal (CMC) joint of both thumbs We discussed symptom control with OTC Tylenol and topical pain relievers. Instructed on 2 grams diclofenac gel 4 times daily. Patient may also use heat or ice, whichever offers better relief. Continue use of thumb spica brace at nighttime and as needed with aggravating activities. We did discuss risk and benefits of cortisone injection for acute flare of symptoms, pt tolerated injection well with slight sx improvement at time of discharge. HEP for hand exercises provided, collaborated case with Dr. Logan on date of visit. Message to Dr. Coon to inquire about BioPro thumb joint. Patient in agreement with plan of care. This note was generated using [employer] software. It may contain errors in wording, punctuation or spelling. Associated Problem(s): Knee effusion, right We reviewed conservative measures for knee OA symptom control. Refill of diclofenac tablets for as needed use up to 2-3 times daily, take with PPI to avoid GI irritation. Patient to continue to take Tylenol per package directions, diclofenac gel up to 4 times daily. Recommended patient to obtain hinged knee brace to wear with activity to prevent any twisting motion at the knee. I did offer aspiration and cortisone injection at today's visit, pt opts for conservative measures. Home MCL sprain exercises provided. Reviewed rest and elevation. Home exercises for knee OA were reviewed and patient encouraged to begin in approximately 1 week and advance as tolerated. Plan will be to follow-up here on prn basis for any worsening of symptoms, concerns or lack of improvement. documented in this encounter [facility] Work Phone: 06-26-2023 Evaluation + Plan note Associated Problem(s): Knee effusion, right We reviewed conservative measures for knee OA symptom control. Refill of diclofenac tablets for as needed use up to 2-3 times daily, take with PPI to avoid GI irritation. Patient to continue to take Tylenol per package directions, diclofenac gel up to 4 times daily. Recommended patient to obtain hinged knee brace to wear with activity to prevent any twisting motion at the knee. I did offer aspiration and cortisone injection at today's visit, pt opts for conservative measures. Home MCL sprain exercises provided. Reviewed rest and elevation. Home exercises for knee OA were reviewed and patient encouraged to begin in approximately 1 week and advance as tolerated. Plan will be to follow-up here on prn basis for any worsening of symptoms, concerns or lack of improvement. [facility] Work Phone: 06-26-2023 History of Presen t illness Narrative Associated Order(s): Hand / UE Inj/Asp: bilateral thumb CMC Subjective Patient ID: Lynda Martinez is a 58 y.o. male. Chief Complaint: Pain and Edema of the Right Knee (Worsening x 3 months, onset x years ago.), Pain of the Left Thumb (Gradually increasing x 3-4 years), and Pain of the Right Thumb (Gradually increasing x 3-4 years.) NARENDRA Vance is a pleasant 58-year-old gentleman with history of bilateral CMC thumb joint arthritis. Last eval approximately 3 years ago. Since then, patient has been doing nighttime thumb spica brace splinting, as needed OTC NSAID or diclofenac 50 mg tablets on sparing basis. Patient does take PPI prn with NSAID use to avoid GI distress and tolerates well. Patient has run out of prescription diclofenac. Patient has attempted multiple topical formulas including Voltaren gel with no effect, holistic cream with some effect for baseline symptoms. Cortisone injection approx 2 yrs ago to R CMC joint with some short term improvement. However, the last 3 weeks the left thumb is significantly aggravated with swelling, decreased range of motion and pain with tasks. Patient is noting increasing weakness over time with pinch and grasp. 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 This is affecting both work and personal activities and hobbies. Patient has researched the [employer] CMC joint replacement system and is interested in pursuing surgical consult if symptoms continue to limit what he wants and needs to do. Patient has had intermittent right knee pain and swelling over several years. The last 2 days, the patient notes increased swelling. He is using a compression sleeve and as needed NSAID with mild improvements. Patient states symptoms are aggravated with foot planted and any twisting motion on the knee, especially to the medial aspect. No identified injury. Review of Systems Constitutional: Negative. HENT: Negative. Respiratory: Negative. Cardiovascular: Negative. Endocrine: Negative. Musculoskeletal: Positive for arthralgias and joint swelling. Skin: Negative. Neurological: Negative. Hematological: Negative. Psychiatric/Behavioral: Negative. Right Knee Exam Tenderness The patient is experiencing tenderness in the medial joint line. Range of Motion Extension: 0 normal Flexion: 100 Tests Vinicius: Medial - positive Lateral - negative Varus: negative Valgus: negative Kim: Anterior - negative Drawer: Anterior - positive Posterior - negative Other Swelling: moderate Comments: There is mild laxity at the medial aspect of the joint, symptoms flared with medial joint testing. Full ROM of distal joints with no sx aggravation, distal motor and sensory intact, cap refill at 2 seconds. Right Hand Exam Other Erythema: absent Sensation: normal Pulse: present Comments: Wrist examination within normal limits, full range of motion, no paresthesias. Mild symptom aggravation of the thumb CMC joint with radial deviation and extension, head cook and grasp. + CMC grind test. Full ROM of distal joints with no sx aggravation, Distal motor and sensory intact, cap refill at 2 seconds. Left Hand Exam Other Erythema: absent Sensation: normal Pulse: present Comments: Wrist examination within normal limits, full range of motion, no paresthesias. Moderate symptom aggravation of the thumb CMC joint with radial deviation and extension, head cook and grasp. + CMC grind test. Full ROM of distal joints with no sx aggravation, Distal motor and sensory intact, cap refill at 2 seconds. Image Results: Independent review of bilateral hand x-rays completed during today's visit. The left thumb CMC joint shows moderate degenerative changes with mild subluxation at the CMC joint. No acute fracture or injury identified. The right thumb shows severe degenerative changes with subluxation at the CMC joint, no acute fracture or injury identified. Right knee imaging shows mild to moderate degenerative changes at the medial compartment with mild joint space narrowing medially. There are no acute fractures or misalignment noted. Positive mild joint effusion. Await radiology reports. Hand / UE Inj/Asp: bilateral thumb CMC for osteoarthritis on 06/26/2023 1:09 PM Indications: diagnostic, pain, joint swelling and therapeutic Details: 25 G needle, dorsal approach Medications (Right): 4 mg dexAMETHasone 4 mg/mL Medications (Left): 4 mg dexAMETHasone 4 mg/mL Outcome: tolerated well, no immediate complications We discussed risk and benefits of cortisone injection, patient wishes to proceed via verbal consent. Skin was prepped with Betadine, Vapocoolant spray and alcohol. Direct visualization using high-frequency linear probe of ultrasound was utilized to administer the injection of 4 mg Dexamethasone and 0.5 cc 1% lidocaine. Patient tolerated injection well lidocaine suppression. Educated to monitor qd blood sugars x 2 weeks. Drink plenty of water and unsweetened fluids, avoid added sugars and refined carbohydrates. Call your PCP for any concerning symptoms or elevated readings. Immediately prior to procedure a time out was called to verify the correct patient, procedure, equipment, instructional support services director and site/side marked as required. Patient was prepped and draped in the usual sterile fashion. Assessment/Plan Encounter Diagnoses: Osteoarthritis of carpometacarpal (CMC) joint of both thumbs Acute pain of right knee Orders Placed This Encounter XR hand 3+ views bilateral XR knee right 3 views Problem List Items Addressed This Visit ICD-10-CM Knee effusion, right M25.461 We reviewed conservative measures for knee OA symptom control. Refill of diclofenac tablets for as needed use up to 2-3 times daily, take with PPI to avoid GI irritation. Patient to continue to take Tylenol per package directions, diclofenac gel up to 4 times daily. Recommended patient to obtain hinged knee brace to wear with activity to prevent any twisting motion at the knee. I did offer aspiration and cortisone injection at today's visit, pt opts for conservative measures. Home MCL sprain exercises provided. Reviewed rest and elevation. Home exercises for knee OA were reviewed and patient encouraged to begin in approximately 1 week and advance as tolerated. Plan will be to follow-up here on prn basis for any worsening of symptoms, concerns or lack of improvement. Primary osteoarthritis of right knee M17.11 Osteoarthritis of carpometacarpal (CMC) joint of both thumbs - Primary M18.0 We discussed symptom control with OTC Tylenol and topical pain relievers. Instructed on 2 grams diclofenac gel 4 times daily. Patient may also use heat or ice, whichever offers better relief. Continue use of thumb spica brace at nighttime and as needed with aggravating activities. We did discuss risk and benefits of cortisone injection for acute flare of symptoms, pt tolerated injection well with slight sx improvement at time of discharge. HEP for hand exercises provided, collaborated case with Dr. Logan on date of visit. Message to Dr. Coon to inquire about BioPro thumb joint. Patient in agreement with plan of care. This note was generated using [employer] software. It may contain errors in wording, punctuation or spelling. Relevant Orders XR hand 3+ views bilateral Other Visit Diagnoses Codes Acute pain of right knee M25.561 Relevant Orders XR knee right 3 views documented in this encounter [facility] Work Phone: 08-08-2022 History of Presen t illness Narrative Patient is here for establish for BPH issues.Sx are worsening. States he does not feel like he is emptying completely.. This is worse in AM. .Patient states he does drink a lot of coffee... He states he is having nocturia x 1. He is taking Flomax 0.8mg daily. Most recent PSA was 3.70 on 08/08. PSA was 2.2 in 2019. Hx of kidney stones. Stone analysis from 2020 showed calcium oxalate stones. No recent sx, no recent imaging. [id number] Work Phone: Evaluation note Diagnosis Osteoarthritis of carpometacarpal (CMC) joint of both thumbs- Primary Acute pain of right knee Knee effusion, right Effusion of lower leg joint Primary osteoarthritis of right knee documented in this encounter [facility] Work Phone: Evaluation noteNo assessment information available [facility] Work Phone: History of Present illness Narrative* Patient presents to establish care. * Patient has a history of diabetes type 2 reportedly well managed with Janumet and a mood disorder well managed with Prozac. Patient also has a history of bilateral thumb osteoarthritis which is followed by orthopedics. * Patient has surgical history including Lizbeth-en-Y and bilateral foot procedures, type unknown. Patient also has surgical history for correction of exotropia. * Patient does admit to lifestyle not consistent with diabetes and expect A1c to be high. Patient is requesting screening labs that these not have been obtained in several years. Patient does complain of nocturia, increased urinary frequency, and weakened urinary stream and suspects BPH. Patient unsur e when most recent PSA was drawn. Patient denies any pain with urination. [facility] Work Phone: Instructions* Name Dates Details Instructions not documented [facility] [address] Work Phone: Reason for referral (narrative)* Consultation (Routine) - Authorized Specialty Diagnoses / Procedures Referred By Hannah t Referred To Contact Orthopaedic Surgery / Orthopedic Surgery Diagnoses Osteoarthritis of carpometacarpal (CMC) joint of both thumbs Primary osteoarthritis of right knee Procedures Follow Up In Orthopaedic Surgery Nadine Martinez, [employer] [address] [facility], [address] [address] Referral ID Status Reason Start Date Expiration Date V isits Requested Visits Authorized [id number] Authorized 06/26/2023 06/25/2024 1 1 * Orthopedic (Routine) - Pending Review Specialty Diagnoses / Procedures Referred By Contac t Referred To Contact Orthopaedic Surgery / Orthopedic Surgery Diagnoses Osteoarthritis of carpometacarpal (CMC) joint of both thumbs Procedures Hand / UE Inj/Asp: bilateral thumb CMC Nadine Martinez APRN-RAJESH [address] [facility], [place] [address] [place] [id number] Referral ID Status Reason Start Date Expiration Date V isits Requested Visits Authorized [id number] Pending Review 06/26/2023 06/25/2024 1 1 * Imaging (Routine) - Authorized Specialty Diagnoses / Procedures Referred By Contac t Referred To Contact Radiology Diagnoses Acute pain of right knee Procedures XR knee right 3 views Nadine Martinez APRN-RAJESH [address] [facility], [place] [id number] Referral ID Status Reason Start Date Expiration Date Visits Requested Visits Authorized [id number] Authorized Perform Procedure 06/25/2023 06/24/2024 1 1 * Imaging (Routine) - Authorized Specialty Diagnoses / Procedures Referred By Contac t Referred To Contact Radiology Diagnoses Osteoarthritis of carpometacarpal (CMC) joint of both thumbs Procedures XR hand 3+ views bilateral Nadine Martinez APRN-RAJESH [address] [facility], [place] [address] [place] [id number] Referral ID Status Reason Start Date Expiration Date Visits Requested Visits Authorized [id number] Authorized Perform Procedure 06/23/2023 06/22/2024 1 1 [facility] Work Phone: Reason for referral (narrative)No [facility] Work [facility]: Summary Purpose Family History No Family History Records Found Mother Name Dates Details Family history of type 2 albertina betes mellitus(V18.0, Z83.3) Status:Active Family history of cerebrovas cular accident (CVA)(V17.1, Z82.3) Status:Active Father Name Dates Details Family history of cerebrovas cular accident (CVA)(V17.1, Z82.3) Status:Active Family history of Cancer of unknown origin(199.1, C80.1) Status:Active Family history of glaucoma(V 19.11, Z83.511) Status:Active Mother Name Dates Details Family history of type 2 albertina betes mellitus(V18.0, Z83.3) Status:Active Family history of cerebrovas cular accident (CVA)(V17.1, Z82.3) Status:Active Father Name Dates Details Family history of cerebrovas cular accident (CVA)(V17.1, Z82.3) Status:Active Family history of Cancer of unknown origin(199.1, C80.1) Status:Active Family history of glaucoma(V 19.11, Z83.511) Status:Active Unknown Family Member Name Dates Details Family history of type 2 albertina betes mellitus: Mother(V18.0, Z83.3) Status:Active Family history of cerebrovas cular accident (CVA): Mother, Father(V17.1, Z82.3) Status:Active Cancer of unknown origin: Fa ther Status:Active Family history of glaucoma: Father(V19.11, Z83.511) Status:Active Family history of myocardial infarction: Mother(V17.3, Z82.49) Status:Active Unknown Family Member Name Dates Details Family history of type 2 albertina betes mellitus: Mother(V18.0, Z83.3) Status:Active Family history of cerebrovas cular accident (CVA): Mother, Father(V17.1, Z82.3) Status:Active Cancer of unknown origin: Fa ther Status:Active Family history of glaucoma: Father(V19.11, Z83.511) Status:Active Family history of myocardial infarction: Mother(V17.3, Z82.49) Status:Active Unknown Family Member Name Dates Details Family history of type 2 albertina betes mellitus: Mother(V18.0, Z83.3) Status:Active Family history of cerebrovas cular accident (CVA): Mother, Father(V17.1, Z82.3) Status:Active Cancer of unknown origin: Fa ther Status:Active Family history of glaucoma: Father(V19.11, Z83.511) Status:Active Family history of myocardial infarction: Mother(V17.3, Z82.49) Status:Active Unknown Family Member Name Dates Details Family history of type 2 albertina betes mellitus: Mother(V18.0, Z83.3) Status:Active Family history of cerebrovas cular accident (CVA): Mother, Father(V17.1, Z82.3) Status:Active Cancer of unknown origin: Fa ther Status:Active Family history of glaucoma: Father(V19.11, Z83.511) Status:Active Family history of myocardial infarction: Mother(V17.3, Z82.49) Status:Active Unknown Family Member Name Dates Details Family history of type 2 albertina betes mellitus: Mother(V18.0, Z83.3) Status:Active Family history of cerebrovas cular accident (CVA): Mother, Father(V17.1, Z82.3) Status:Active Cancer of unknown origin: Fa ther Status:Active Family history of glaucoma: Father(V19.11, Z83.511) Status:Active Family history of myocardial infarction: Mother(V17.3, Z82.49) Status:Active Unknown Family Member Name Dates Details Family history of type 2 albertina betes mellitus: Mother(V18.0, Z83.3) Status:Active Family history of cerebrovas cular accident (CVA): Mother, Father(V17.1, Z82.3) Status:Active Cancer of unknown origin: Fa ther Status:Active Family history of glaucoma: Father(V19.11, Z83.511) Status:Active Family history of myocardial infarction: Mother(V17.3, Z82.49) Status:Active Unknown Family Member Name Dates Details Family history of type 2 albertina betes mellitus: Mother(V18.0, Z83.3) Status:Active Family history of cerebrovas cular accident (CVA): Mother, Father(V17.1, Z82.3) Status:Active Cancer of unknown origin: Fa ther Status:Active Family history of myocardial infarction: Mother(V17.3, Z82.49) Status:Active Family history of glaucoma: Father(V19.11, Z83.511) Status:Active Advance Directives No Advanced Directives Records FoundNo Advanced Directives Records FoundNo Advanced Directives Records FoundNo Advanced Directives Records FoundNo Advanced Directives Records FoundNo Advanced Directives Records FoundNo Advanced Directives Records FoundNo Advanced Directives Records FoundNo Advanced Directives Records FoundNo Advanced Directives Records FoundNo Advanced Directives Records Found Chief Complaint * Patient here today to get established as a new patient and states it has been a years since last seen by a PCP. * Patient offers no complaints and tolerating Fluoxetine and Janumet. * Patient would like to have health maintenance labs. BPHCysto,Prostate US-BPH with Urinary Obstruction and LUTSCysto,Prostate US-BPH with Urinary Obstruction and LUTS Chief Complaint and Reason for Visit Chief Complaint Admit Date EORDERS March 01, 2025 1:01pm Additional Source Comments (unrecognized sect ion and content) No Status Records FoundNo Status Records FoundNo Status Records FoundNo Status Records FoundNo Status Records FoundNo Status Records FoundNo Status Records FoundNo Status Records FoundNo Status Records FoundNo Status Records FoundNo Status Records Found INFORMATION SOURCE (unrecogn ized section and content) DATE CREATED AUTHOR 12/09/2017 [facility] DATE CREATED AUTHOR AUTHOR'S ORGANIZ ATION 12/09/2017 [facility] DATE CREATED AUTHOR AUTHOR'S ORGANIZ ATION 03/09/2019 [facility] DATE CREATED AUTHOR AUTHOR'S ORGANIZ ATION 01/23/2023 [facility] DATE CREATED AUTHOR AUTHOR'S ORGANIZ ATION 01/23/2023 [facility] DATE CREATED AUTHOR AUTHOR'S ORGANIZ ATION 03/20/2023 [facility] DATE CREATED AUTHOR AUTHOR'S ORGANIZ ATION 03/21/2023 [facility] DATE CREATED AUTHOR AUTHOR'S ORGANIZ ATION 06/29/2023 [facility] DATE CREATED AUTHOR AUTHOR'S ORGANIZ ATION 06/30/2023 [facility] DATE CREATED AUTHOR AUTHOR'S ORGANIZ ATION 12/20/2023 [facility] DATE CREATED AUTHOR AUTHOR'S ORGANIZ ATION 03/19/2025 [facility] <item> Privacy Markings (unrecogniz ed section and content) Section Author: Elinor Ghosh PROHIBITION ON REDISCLOSURE OF CONFIDENTIAL INFORMATION This notice accompanies a disclosure of information concerning a client made to you with the consent of such client. Reason for Visit (unrecogniz ed section and content) Reason Comments Pain Worsening x 3 months , onset x years ago. Edema Worsening x 3 months , onset x years ago. Pain Gradually increasing x 3-4 years Pain Gradually increasing x 3-4 years. Care Teams (unrecognized sec tion and content) Publishing Specialist Relationship Specialty Start Date End Date Dexter Rios PA-C [address] [facility] [place] [address] PCP - General 08/08/21 Dexter Rios PA-C [address] [facility] [place] [address] PCP - [employer] PCP 06/16/21 Team Status: Active Member Role/Relationship Status Dates Dr. Rajiv Hdz MD Primary care physician [employer] Team Status: Inactive Member Role/Relationship Status Dates Dr. Rajiv Hdz MD Primary care physician [employer] Start: March 01, 2025 End: March 01, 2025 Dr. Rajiv Hdz MD Attending physician Active Start: March 01, 2025 End: March 01, 2025 Dr. Rajiv Hdz MD Referring Provider Active Start: March 01, 2025 End: March 01, 2025 Goals (unrecognized section and content) Goals may be documented in a n alternate section FOR RECORDS PERTAINING TO PATIENTS WHO ARE OR HAVE BEEN ENROLLED IN A CHEMICAL DEPENDENCY/SUBSTANCEABUSE PROGRAM, SOME INFORMATION MAY BE OMITTED. This clinical summary was aggregated from multiple sources. Caution should be exercised in using it in the provision of clinical care. This summary normalizes information from multiple sources, and as a consequence, information in this document may materially change the coding, format and clinical context of patient data. In addition, data may be omitted in some cases. CLINICAL DECISIONS SHOULD BE BASED ON THE PRIMARY CLINICAL RECORDS. [facility]. provides no warranty or guarantee of the accuracy or completeness of information in this document.
[2025-05-31 10:12] LABS: Hematocrit 42.9 % (40-54); Hemoglobin 12.7 g/dL (13.0-16.5); Immature Granulocytes Count 0.010 X10^3/uL (0.0-0.0); Mean Corp Hgb Conc 29.6 g/dL (32-36); Mean Corpuscular Volume 84.1 fL (80-94); Mean Platelet Vol. 11.2 fl (6.2-12.0); NRBC Flagged by Analyzer 0 % (0-5); Platelet Count 294 K/mm3 (150-450); RBC Distribution Width CV 15.5 % (11.6-14.6); RBC Distribution Width SD 47.3 fl (35.1-43.9); Red Blood Count 5.10 M/mm3 (4.6-6.2); White Blood Count 6.3 K/mm3 (4.4-11.0)
[2025-05-31 10:35] LABS: Creatinine, Urine (random) 78.00 mg/dL (39.00-259.00); Microalbumin,Random Urine 112.0 mg/L (<20 mg/L)
[2025-05-31 10:49] LABS: Anion Gap 11 (5-15); BUN 19 mg/dL (4-19); BUN/Creat Ratio 14.0 RATIO (10-20); Calcium,Total 9.1 mg/dL (7.6-11.0); Carbon Dioxide 22.2 mmol/L (21.0-32.0); Chloride 107 mmol/L (98-108); Glucose 146 mg/dL (70-99); Potassium 4.1 mmol/L (3.3-5.1); Vitamin B12 403 pg/mL (180-914); Vitamin D,25 Hydroxy 10.0 ng/mL (30-100)
[2025-06-05 14:08] LABS: PSA, Free 0.93 ng/mL; PSA, Free % 9.9 % (.); PSA, Total Ultrasensitive 9.360 ng/mL (0.000-4.000); Testosterone, % Free 1.94 % (1.50-4.20); Testosterone, Free 8.09 ng/dL (5.00-21.00)
== END | disposition home or self-care (01) ==
LOC: MTLAB 07:25
PROVIDERS: PCP Family Medicine; Referring Provider Family Medicine; Visit Provider Family Medicine
DX: E11.22 Type 2 diabetes mellitus with diabetic chronic kidney disease (principal); N18.30 Chronic kidney disease, stage 3 unspecified; R79.89 Other specified abnormal findings of blood chemistry; R53.83 Other fatigue; R97.20 Elevated prostate specific antigen [PSA]
CPT/HCPCS: 36415; 80048; 82043; 82306; 82570; 82607; 84153; 84154; 84402; 84403; 85025; 87086